=== PATIENT | male | born 1960 | race Caucasian/White ===

== ENCOUNTER 2018-11-28 20:32 | Inpatient (IN) | payer OTHER ==
[2018-11-28 21:31] LABS: HEMATOCRIT 40.1 % (37.9-51.0); HEMOGLOBIN 13.5 g/dL (13.5-17.0); MEAN CORPUSCULAR HGB CONC 33.7 g/dL (32.0-36.0); MEAN CORPUSCULAR VOLUME 89 fl (80-97); PLATELET COUNT 220 10^3/uL (150-450); RED BLOOD COUNT 4.51 10^6/uL (4.35-5.55); RED CELL DISTRIBUTION WIDTH 13.6 % (11.5-14.0)
[2018-11-28 21:40] LABS: INTERNATIONAL RATION (INR) 1.03; PROTHROMBIN TIME 14.1 SEC (11.4-15.4)
[2018-11-28] MEDS ORDERED: ONDANSETRON HCL INJ/PF 4 MG/2 ML SDV IV ONE (21:45)
[2018-11-28] MEDS ORDERED: NORMAL SALINE 1000 ML 1,000 ML IV ONE ×2 (21:45→22:51)
[2018-11-28 21:50] LABS: PLATELET COMMENT ADEQUATE
[2018-11-28 21:51] LABS: SMUDGE CELLS PRESENT
[2018-11-28 21:52] LABS: RBC MORPHOLOGY COMMENT NORMO-CYTIC/CHROMIC
[2018-11-28 22:03] LABS: ABSOLUTE LYMPHOCYTES# (MANUAL) 23.1 10^3/uL (0.5-4.7); ABSOLUTE MONOCYTES # (MANUAL) 0.3 10^3/uL (0.1-1.4); BASOPHILS % (MANUAL) 0 % (0-2); EOSINOPHILS % (MANUAL) 0 % (0-6); MONOCYTES % (MANUAL) 1 % (3-13); SEGMENTED NEUTROPHILS % (MAN) 23 % (42-78); TOTAL CELLS COUNTED 100
[2018-11-28] MEDS ORDERED: PANTOPRAZOLE SODIUM 40 MG VIAL IV ONE (22:03)
[2018-11-28] MEDS ORDERED: PANTOPRAZOLE SODIUM 40 MG VIAL IV PRN (22:03)
--- NOTE | 2018-11-28 22:05 | ER Document Report ---
ED General - General Chief Complaint: GI Bleeding Stated Complaint: VOMITING BLOOD Time Seen by Provider: 11/28/18 21:44 Notes: Patient is a 58-year old male with past medical history of hypertension and hypercholesterolemia who presents due to concerns of vomiting bright red blood and passing several bowel movements of bright red blood as well as now melanotic stools. Patient states that he had only one episode of vomiting bright red bloo d and has not had any recurrence since that time. States that he subsequently began passing bright red blood in his stool which has since become a dark, tarry substance. States that he had been working out in the heat all day when he began to feel somewhat nauseated and then had the described episode of vomiting. He denies any abdominal pain. Has not noted that anything seems to improve or worsen his symptoms. Regards symptoms as being severe. He denies a history of similar symptoms in the past but reports that he has a history of a Liz fundoplication for severe reflux. Does not take any form of H2 melva or PPI. Does intimately take meloxicam but denies other NSAID use. Does not smoke or drink alcohol. - Related Data Allergies/Adverse Reactions: No Known Allergies Allergy (Unverified 02/04/12 19:25) Past Medical History - General Information source: Patient - Social History Smoking Status: Never Smoker Frequency of alcohol use: None Drug Abuse: None Lives with: Spouse/Significant other Family History: Reviewed & Not Pertinent - Past Medical History Cardiac Medical History: Reports: Hx Hypercholesterolemia, Hx Hypertension Denies: Hx Atrial Fibrillation, Hx Congestive Heart Failure, Hx Coronary Artery Disease, Hx Heart Attack, Hx Peripheral Vascular Disease, Hx Pulmonary Embolism, Hx Heart Murmur Pulmonary Medical History: Denies: Hx Asthma, Hx Bronchitis, Hx COPD, Hx Pneumonia, Hx Respiratory Failure, Hx Sleep Apnea, Hx Tuberculosis Neurological Medical History: Denies: Hx Cerebrovascular Accident, Hx Seizures Endocrine Medical History: Denies: Hx Graves' Disease, Hx Hyperthyroidism, Hx Hypothyroidism Renal/ Medical History: Denies: Hx Benign Prostatic Hyperplasia, Hx End Stage Renal Disease, Hx Kidney Stones, Hx Peritoneal Dialysis Malignancy Medical History: Denies Hx Leukemia, Denies Hx Lung Cancer GI Medical History: Reports: Hx Hiatal Hernia. Denies: Hx Crohn's Disease, Hx Gastroesophageal Reflux Disease, Hx Irritable Bowel, Hx Liver Failure, Hx Pancreatitis, Hx Ulcer Musculoskeletal Medical History: Denies Hx Arthritis, Denies Hx Fibromyalgia, Denies Hx Multiple Sclerosis, Denies Hx Muscular Dystrophy, Denies Hx Systemic Lupus Erythematosus Psychiatric Medical History: Denies: Hx Bipolar Disorder, Hx Dementia, Hx Depression, Hx Post Traumatic Stress Disorder, Hx Schizophrenia Traumatic Medical History: Reports: Hx Fractures - Right foot- big and little toe Infectious Medical History: Denies: Hx HIV Past Surgical History: Reports: Hx Cholecystectomy, Hx Thyroid Surgery - parathyroid removal, Hx Tonsillectomy. Denies: Hx Appendectomy, Hx Bowel Surgery, Hx Colostomy, Hx Coronary Artery Bypass Graft, Hx Gastric Bypass Surgery, Hx Herniorrhaphy, Hx Pacemaker Review of Systems - Review of Systems Notes: Constitutional: Negative for fever. HENT: Negative for sore throat. Eyes: Negative for visual changes. Cardiovascular: Negative for chest pain. Respiratory: Negative for shortness of breath. Gastrointestinal: Negative for abdominal pain, positive for hematemesis and melanotic stools Genitourinary: Negative for dysuria. Musculoskeletal: Negative for back pain. Skin: Negative for rash. Neurological: Negative for headaches, weakness or numbness. 10 point ROS negative except as marked above and in HPI. Physical Exam - Vital signs Vitals: Temp Pulse Resp BP Pulse Ox 98.3 F 136 H 20 148/96 H 97 11/28/18 20:42 11/28/18 20:42 11/28/18 20:42 11/28/18 20:42 11/28/18 20:42 Interpretation: Hypertensive, Tachycardic Notes: PHYSICAL EXAMINATION: GENERAL: Well-appearing, well-nourished and in no acute distress. HEAD: Atraumatic, normocephalic. EYES: Pupils equal round and reactive to light, extraocular movements intact, sclera anicteric, conjunctiva are normal. ENT: nares patent, oropharynx clear without exudates. Moist mucous membranes. NECK: Normal range of motion, supple without lymphadenopathy LUNGS: Breath sounds clear to auscultation bilaterally and equal. No wheezes rales or rhonchi. HEART: Regular tachycardia without murmurs ABDOMEN: Soft, nontender, normoactive bowel sounds. No guarding, no rebound. No masses appreciated. EXTREMITIES: Normal range of motion, no pitting or edema. No cyanosis. NEUROLOGICAL: No focal neurological deficits. Moves all extremities spontaneously and on command. PSYCH: Normal mood, normal affect. SKIN: Warm, Dry, normal turgor, no rashes or lesions noted. Course - Re-evaluation Re-evalutation: 11/28/18 22:03 Patient presents with vomiting bright red blood on one occasion and having several initially bright red blood blood per rectum episodes now melanotic stools here in the emergency department. Guaiac positive at bedside with obvious melena. Abdominal exam with some mild epigastric abdominal tenderness o therwise no focal areas of tenderness, rebound or guarding. Patient was near syncopal at home although did not lose consciousness. Initially tachycardic here in the emergency department without hypotension. Has a history of a Liz in the past secondary to severe reflux. Does not currently take any form of H2 or PPI but does take meloxicam intermittently for rotator cuff issues but states he only takes it 1-2 times weekly. The patient will receive laboratories, has been started on a Protonix infusion after bolus, will require hospitalization. We do have Dr. Enrique available who is capable of performing endoscopies if this does become necessary. 11/28/18 23:05 Patient's labs do demonstrate prominent leukocytosis with lymphocytic predominance worrisome for CLL. This has been disclosed to the patient. Patient's labs also noted for hyperkalemia at 6.1. Patient has been treated wit h furosemide, IV fluids, as well as dextrose and insulin. I have reassessed the patient, he has not had any further episodes of vomiting or melanotic stools. Repeat abdominal exam remains benign. I have discussed this case with Dr. Lynn who is accepted patient for hospitalization. - Vital Signs Vital signs: Temp Pulse Resp BP Pulse Ox 98.6 F 105 H 20 145/120 H 98 11/29/18 01:28 11/29/18 01:28 11/29/18 01:28 11/29/18 01:28 11/29/18 01:28 - Laboratory Result Diagrams: 11/28/18 21:05 11/28/18 21:55 Laboratory results interpreted by me: 11/28/18 11/28/18 11/28/18 21:05 21:55 22:40 WBC 30.4 H* Seg Neuts % (Manual) 23 L Lymphocytes % (Manual) 76 H Monocytes % (Manual) 1 L Abs Lymphs (Manual) 23.1 H Potassium 6.1 H* BUN 37 H Glucose 117 H Urine Ketones TRACE H - EKG Interpretation by Me Additional EKG results interpreted by me: 11/28/18 23:12 Rate 96, sinus rhythm, no ST elevations or depressions. QTC is 420. Discharge - Discharge Clinical Impression: Upper GI bleed, Melanotic stools, Hyperkalemia Hematemesis Qualifiers: Nausea presence: with nausea Qualified Code(s): K92.0 - Hematemesis Leukocytosis Qualifiers: Leukocytosis type: lymphocytosis Qualified Code(s): D72.820 - Lymphocytosis (symptomatic) Condition: Fair Disposition: ADMITTED INPATIENT Admitting Provider: Shane (Hospitalist) Unit Admitted: [facility]
[2018-11-28 22:09] LABS: LYMPHOCYTES % (MANUAL) 76 % (13-45); WHITE BLOOD COUNT 30.4 10^3/uL (4.0-10.5)
[2018-11-28 22:43] LABS: ALANINE AMINOTRANSFERASE 31 U/L (21-72); ALKALINE PHOSPHATASE 47 U/L (38-126); ANION GAP 9 (5-19); ASPARTATE AMINO TRANSFERASE 30 U/L (17-59); BILIRUBIN,DIRECT 0.2 mg/dL (0.0-0.4); BILIRUBIN,TOTAL 0.8 mg/dL (0.2-1.3); BLOOD UREA NITROGEN 37 mg/dL (7-20); CALCIUM 8.6 mg/dL (8.4-10.2); CARBON DIOXIDE 25 mmol/L (22-30); CHLORIDE 106 mmol/L (98-107); GLUCOSE 117 mg/dL (75-110); SODIUM 139.6 mmol/L (137-145); TOTAL PROTEIN 6.5 g/dL (6.3-8.2)
[2018-11-28 22:46] LABS: POTASSIUM 6.1 mmol/L (3.6-5.0)
[2018-11-28] MEDS ORDERED: INSULIN REG, HUMAN 100 UNIT/ML 3 ML VIAL (PYX) IV ONE (22:51)
[2018-11-28] MEDS ORDERED: DEXTROSE 50%-WATER 25 GM/50 ML DISP.SYRIN IV ONE (22:51)
[2018-11-28] MEDS ORDERED: FUROSEMIDE INJ/PF 20 MG/2 ML SDV IV ONE (22:51)
--- NOTE | 2018-11-28 23:33 | EKG REPORT ---
SEVERITY:- ABNORMAL ECG - SINUS RHYTHM PROBABLE INFERIOR INFARCT, AGE INDETERMINATE : Confirmed by: Ashley Pompa MD 28-Nov-2018 23:32:31
[2018-11-28] MEDS ORDERED: ONDANSETRON HCL INJ/PF 4 MG/2 ML SDV IV PRN (23:48)
[2018-11-28] MEDS ORDERED: RINGERS SOLUTION,LACTATED 1,000 ML IV PRN (23:48)
[2018-11-28] MEDS ORDERED: METOPROLOL TARTRATE PF/INJ 5 MG/5 ML SDV IV PRN (23:58)
[2018-11-28] MEDS ORDERED: MORPHINE SULFATE 10 MG/ML INJ IV PRN (23:58)
[2018-11-28] MEDS ORDERED: ACETAMINOPHEN 650 MG SUPP.RECT PR PRN (23:58)
[2018-11-29] MEDS ORDERED: MORPHINE SULFATE 10 MG/ML INJ IV PRN ×3 (00:05)
[2018-11-29 00:39] LABS: APPEARANCE,URINE CLEAR; BILIRUBIN,URINE NEGATIVE (NEGATIVE); COLOR,URINE YELLOW; GLUCOSE, URINE NEGATIVE (NEGATIVE); KETONES,URINE TRACE mg/dL (NEGATIVE); LEUKOCYTE ESTERASE,URINE NEGATIVE (NEGATIVE); NITRITE,URINE NEGATIVE (NEGATIVE); PROTEIN,URINE NEGATIVE (NEGATIVE); URINE SPECIFIC GRAVITY 1.025; UROBILINOGEN,URINE NEGATIVE mg/dL (<2.0)
--- NOTE | 2018-11-29 02:01 | PDOC H&P ---
History of Present Illness Admission Date/PCP: 11/28/2018 No local PCP Patient complains of: Hematemesis History of Present Illness: FAROOQ HARDY is a 58 year old male who presented to the emergency room with an acute episode of severe hematemesis. He admits that he experienced the sudden onset of one large bright red bloody emesis at work at approximately 1300 prior to his eventual trip to home and subsequent coming to the emergency room. He acknowledges a mild headache on arising the morning of this event. He took Tylenol for the headache and subsequently noticed the gradual development of nausea and diaphoresis over the next few hours prior to his episode of hematemesis. He admits minimal intermittent localized epigastric discomfort, palpitations, severe diaphoresis, several near-syncopal/orthostatic hypotensive episodes after the event and the subsequent passage of bright red blood rectally followed by multiple melenic stools associated with his hematemesis. He denies prior similar episodes and has not identified any aggravating or ameliorating factors for his hematemesis. In the emergency room he was found to be mildly tachycardic without hypotension. He is remained hemodynamically stable after being started on IV fluids and a Protonix infusion. His initial lab work showed a hyperkalemia of 6.1 and a white blood count of 30,000 with a significant lymphocytic predominance possibly reflecting a chronic lymphocytic leukemia or other bone marrow dyscrasia. Patient will be admitted to the [facility] for further evaluation and treatment. Past Medical History Cardiac Medical History: Reports: Hyperlipidema, Hypertension Denies: Atrial Fibrillation, Congestive Heart Failure, Coronary Artery Disease, Myocardial Infarction, Peripheral Vascular Disease, Pulmonary Embolism, Heart Murmur Pulmonary Medical History: Denies: Asthma, Bronchitis, Chronic Obstructive Pulmonary Disease (COPD), Pneumonia, Respiratory Failure, Sleep Apnea, Tuberculosis EENT Medical History: Reports: Eyes - Corrective lenses, Throat - Remote history of tonsillitis Denies: Cataracts, Ears - Hearing aids Neurological Medical History: Denies: Hemorrhagic CVA, Ischemic CVA, Multiple Sclerosis, Seizures Endocrine Medical History: Reports: Other - 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 Denies: Diabetes Mellitus Type 1, Diabetes Mellitus Type 2, Hyperthyroidism, Hypothyroidism Renal/ Medical History: Denies: Chronic Kidney Disease, Nephrolithiasis Malignancy Medical History: Reports: None GI Medical History: Reports: Gastroesophageal Reflux Disease, Hiatal Hernia Denies: Cirrhosis, Crohn's Disease, Diverticulitis, Hepatitis, Peptic Ulcer Disease, Ulcerative Colitis Musculoskeltal Medical History: Reports: Other - Right rotator cuff tear with surgery planned next week Denies: Arthritis, Fibromyalgia Skin Medical History: Denies: Eczema, Psoriasis Psychiatric Medical History: Denies: Alcohol Dependency, Bipolar Disorder, Dementia, Depression, Post Traumatic Stress Disorder, Substance Abuse, Tobacco Dependency Traumatic Medical History: Reports: None Hematology: Denies: Anemia, Bleeding Tendencies Infectious Medical History: Reports: None Past Surgical History Past Surgical History: Reports: Cholecystectomy, Knee Replacement, Orthopedic Surgery - Bilateral knee replacements, Tonsillectomy, Other - Umang fundoplication, parathyroidectomy Social History Information Source: Patient Lives with: Spouse/Significant other Smoking Status: Never Smoker Frequency of Alcohol Use: Occasional Hx Recreational Drug Use: No Drugs: None Hx Prescription Drug Abuse: No - Advance Directive Resuscitation Status: Full Code Surrogate healthcare decision maker:: Dana Hardy Family History Family History: COPD, Hypertension, Malignancy. denies: CAD, DM, Hyperlipidemia Parental Family History Reviewed: Yes Children Family History Reviewed: No Sibling(s) Family History Reviewed.: Yes Medication/Allergy Home Medications: Atenolol [Tenormin 50 Mg Tablet] 50 mg PO DAILY 02/04/12 Atorvastatin Calcium [Lipitor 40 Mg Tablet] 40 mg PO QHS 02/04/12 Clindamycin HCl [Cleocin Hcl] 300 mg PO TID 02/04/12 Hydrocodone Bit/Acetaminophen [Vicodin 5-500 mg Tablet] 1 tab PO Q8 PRN 02/04/12 Allergies/Adverse Reactions: No Known Allergies Allergy (Unverified 02/04/12 19:25) Review of Systems Constitutional: PRESENT: as per HPI, other - Diaphoresis. ABSENT: chills, fever(s) Eyes: ABSENT: visual disturbances, other - Eye pain Ears: ABSENT: hearing changes, other - Ear pain Nose, Mouth, and Throat: ABSENT: mouth pain, sore throat Cardiovascular: PRESENT: as per HPI, palpitations, other - Near syncope/orthostatic events. ABSENT: chest pain, dyspnea on exertion, edema, orthropnea Respiratory: ABSENT: cough, dyspnea Gastrointestinal: PRESENT: as per HPI, abdominal pain, hematemesis - Bright red large volume hematemesis, melena, nausea, vomiting, other - Bright red rectal bleeding. ABSENT: constipation, diarrhea Genitourinary: ABSENT: dysuria, hematuria Musculoskeletal: PRESENT: other - Right rotator cuff tear with planned surgery. ABSENT: back pain, joint swelling, muscle weakness Integumentary: ABSENT: pruritus, rash Neurological: PRESENT: as per HPI, other - Near syncope/orthostatic events. ABSENT: confusion, convulsions, focal weakness, memory loss, syncope Psychiatric: ABSENT: anxiety, depression Endocrine: ABSENT: cold intolerance, heat intolerance Hematologic/Lymphatic: ABSENT: easy bleeding, easy bruising Physical Exam Vital Signs: Temp Pulse Resp BP Pulse Ox 98.3 F 136 H 20 148/96 H 97 11/28/18 20:42 11/28/18 20:42 11/28/18 20:42 11/28/18 20:42 11/28/18 20:42 Intake & Output 11/26/18 11/27/18 11/28/18 23:59 23:59 23:59 Weight 108.862 kg General appearance: PRESENT: no acute distress, cooperative, obese Head exam: PRESENT: atraumatic, normocephalic Eye exam: ABSENT: conjunctival injection, scleral icterus Ear exam: PRESENT: normal external ear exam. ABSENT: bleeding, drainage Mouth exam: PRESENT: dry mucosa, neck supple Neck exam: ABSENT: JVD, thyromegaly, tracheal deviation Respiratory exam: PRESENT: clear to auscultation mulugeta, symmetrical, unlabored Cardiovascular exam: PRESENT: RRR, tachycardia. ABSENT: clicks, gallop, rubs Pulses: PRESENT: normal radial pulses, normal dorsalis pedis pul Vascular exam: PRESENT: normal capillary refill. ABSENT: pallor GI/Abdominal exam: PRESENT: normal bowel sounds, soft, tenderness - Minimal epigastric tenderness on palpation Rectal exam: PRESENT: deferred Extremities exam: ABSENT: joint swelling, pedal edema Musculoskeletal exam: PRESENT: normal inspection. ABSENT: deformity, dislocati on Neurological exam: PRESENT: alert, oriented to person, oriented to place, oriented to time, oriented to situation, CN II-XII grossly intact. ABSENT: motor sensory deficit Psychiatric exam: PRESENT: appropriate affect, normal mood Skin exam: PRESENT: dry, intact, warm. ABSENT: jaundice, rash, urticaria Results Laboratory Results: 11/28/18 21:05 11/28/18 21:55 06/02/19 06/02/19 06/02/19 21:05 21:05 21:05 WBC 30.4 H* RBC 4.51 Hgb 13.5 Hct 40.1 MCV 89 MCH 30.0 MCHC 33.7 RDW 13.6 Plt Count 220 Seg Neutrophils % Not Reportable Lymphocytes % Not Reportable Monocytes % Not Reportable Eosinophils % Not Reportable Basophils % Not Reportable Absolute Neutrophils Not Reportable Absolute Lymphocytes Not Reportable Absolute Monocytes Not Reportable Absolute Eosinophils Not Reportable Absolute Basophils Not Reportable Sodium Cancelled Potassium Cancelled Chloride Cancelled Carbon Dioxide Cancelled Anion Gap Cancelled BUN Cancelled Creatinine Cancelled Est GFR ( Amer) Cancelled Est GFR (Non-Af Amer) Cancelled Glucose Cancelled Calcium Cancelled Total Bilirubin Cancelled AST Cancelled ALT Cancelled Alkaline Phosphatase Cancelled Total Protein Cancelled Albumin Cancelled Blood Type Cancelled Antibody Screen Cancelled 11/28/18 21:55 WBC RBC Hgb Hct MCV MCH MCHC RDW Plt Count Seg Neutrophils % Lymphocytes % Monocytes % Eosinophils % Basophils % Absolute Neutrophils Absolute Lymphocytes Absolute Monocytes Absolute Eosinophils Absolute Basophils Sodium 139.6 Potassium 6.1 H* Chloride 106 Carbon Dioxide 25 Anion Gap 9 BUN 37 H Creatinine 0.96 Est GFR ( Amer) > 60 Est GFR (Non-Af Amer) > 60 Glucose 117 H Calcium 8.6 Total Bilirubin 0.8 AST 30 ALT 31 Alkaline Phosphatase 47 Total Protein 6.5 Albumin 4.0 Blood Type Antibody Screen Assessment and Plan - Diagnosis (1) Upper GI bleed Is this a current diagnosis for this admission?: Yes Plan: Patient be treated with IV fluid volume replacement and his hemoglobin will be monitored on a every 6 hour basis to determine possible need for blood transfusion, which would be given if required. Additionally patient will be maintained on IV Protonix and will be kept n.p.o. He will receive morphine sulfate 2 to 4 mg IV every 2 hours as needed pain on a sliding scale basis. Surgical/gastroenterology consult will be obtained as appropriate. (2) Leukocytosis Qualifiers: Leukocytosis type: lymphocytosis Qualified Code(s): D72.820 - Lymphocytosis (symptomatic) Is this a current diagnosis for this admission?: Yes Plan: A hematology consultation will be obtained for further evaluation and treatment of the patient's lymphocyte predominant leukocytosis. (3) HTN (hypertension) Qualifiers: Hypertension type: essential hypertension Qualified Code(s): I10 - Essential (primary) hypertension Is this a current diagnosis for this admission?: Yes Plan: Patient will be placed back on his regular antihypertensive medications once he is able to take oral medications and his GI tract is stable. In the interim metoprolol 5 mg IV every 4 hours will be used to control his blood pressure if he develops a systolic pressure greater than 160 and/or diastolic pressure greater than 100. (4) HLD (hyperlipidemia) Qualifiers: Hyperlipidemia type: unspecified Qualified Code(s): E78.5 - Hyperlipidemia, unspecified Is this a current diagnosis for this admission?: Yes Plan: Patient will resume his prior hyperlipidemia therapy once his GI bleeding has resolved and he is again able to take oral medications. A lipid profile will be obtained to assess his current therapy. - Time Time Spent with patient: 25-34 minutes Medications reviewed and adjusted accordingly: Yes Anticipated discharge: Home - Inpatient Certification Based on my medical assessment, after consideration of the patient's comorbidit ies, presenting symptoms, or acuity I expect that the services needed warrant INPATIENT care.: Yes I certify that my determination is in accordance with my understanding of Me juli's requirements for reasonable and necessary INPATIENT services [42 CFR 412.3e].: Yes Medical Necessity: Need Close Monitoring Due to Risk of Patient Decompensation, Need For IV Fluids, Need For Continuous Telemetry Monitoring, Need for Surgery, Risk of Complication if Not Cared For in Hospital, Risk of Diagnosis Which Will Require Inpatient Eval/Care/Monitoring
[2018-11-29] MEDS: NORMAL SALINE 1000 ML 1,000 ML IV PRN ×3 (02:10→20:42)
[2018-11-29 05:27] LABS: HEMATOCRIT 33.2 % (37.9-51.0); MEAN CORPUSCULAR HEMOGLOBIN 30.4 pg (27.0-33.4); MEAN CORPUSCULAR VOLUME 89 fl (80-97); PLATELET COUNT 182 10^3/uL (150-450); RED BLOOD COUNT 3.72 10^6/uL (4.35-5.55); RED CELL DISTRIBUTION WIDTH 13.8 % (11.5-14.0); WHITE BLOOD COUNT 22.3 10^3/uL (4.0-10.5)
[2018-11-29 05:30] LABS: HEMOGLOBIN 11.3 g/dL (13.5-17.0)
[2018-11-29 05:40] LABS: ANION GAP 7 (5-19); BLOOD UREA NITROGEN 34 mg/dL (7-20); CARBON DIOXIDE 25 mmol/L (22-30); CHLORIDE 110 mmol/L (98-107); CHOLESTEROL 110.95 mg/dL (0-200); GLUCOSE 108 mg/dL (75-110); SODIUM 142.2 mmol/L (137-145); TRIGLYCERIDES 118 mg/dL (<150)
[2018-11-29 05:51] LABS: DIRECT LDL 72 mg/dL (<100)
[2018-11-29 06:06] LABS: POTASSIUM 4.4 mmol/L (3.6-5.0)
--- NOTE | 2018-11-29 08:17 | PDOC CONSULTATION ---
Consultation Consult Date: 11/29/18 Provider Consulted: KELLE ZHAO Consult reason:: Hematology consult was reuqested for patient with GI bleeding. History of Present Illness Admission Date/PCP: 11/28/18 23:23 History of Present Illness: FAROOQ LEVI is a 58 year old male who follows with Dr. Madi Toledo in [place]. He is scheduled to undergo shoulder surgery later this month, and had been on NSAIDs and muscle relaxers for his shoulder, but these were only PRN and he denies taking any within the last week. He also denies any steroid injections or oral tabs recently. He states that he suddenly had onset of nausea and fatigue. He then had 1 episode of hematemesis followed by bright red blood from rectum. Now, he has dark blood from bowels and feel as though he will pass out. He denies any pain. He has been seen by Dr. Penn and underwent colonoscopy 3-4 years ago which was reportedly normal. No recent EGDs. He denies being on any H2 blockers or PPIs recently. This morning, he states that he simply wants the bleeding to stop. Past Medical History Cardiac Medical History: Reports: Hyperlipidema, Hypertension Denies: Atrial Fibrillation, Congestive Heart Failure, Coronary Artery Disease, Myocardial Infarction, Peripheral Vascular Disease, Pulmonary Embolism, Heart Murmur Pulmonary Medical History: Denies: Asthma, Bronchitis, Chronic Obstructive Pulmonary Disease (COPD), Pneumonia, Respiratory Failure, Sleep Apnea, Tuberculosis EENT Medical History: Reports: Eyes - Corrective lenses, Throat - Remote history of tonsillitis Denies: Cataracts, Ears - Hearing aids Neurological Medical History: Denies: Hemorrhagic CVA, Ischemic CVA, Multiple Sclerosis, Seizures Endocrine Medical History: Reports: Other - 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 Denies: Diabetes Mellitus Type 1, Diabetes Mellitus Type 2, Hyperthyroidism, Hypothyroidism Renal/ Medical History: Denies: Chronic Kidney Disease, End Stage Renal Disease, Nephrolithiasis Malignancy Medical History: Reports: None Denies: Breast Cancer, Cervical Cancer, Leukemia, Lung Cancer, Ovarian Cancer GI Medical History: Reports: Hiatal Hernia Denies: Cirrhosis, Crohn's Disease, Diverticulitis, Gastroesophageal Reflux Disease, Hepatitis, Peptic Ulcer Disease, Ulcerative Colitis Musculoskeltal Medical History: Reports: Other - Right rotator cuff tear with surgery planned next week Denies: Arthritis, Fibromyalgia Skin Medical History: Denies: Eczema, Psoriasis Psychiatric Medical History: Denies: Alcohol Dependency, Bipolar Disorder, Dementia, Depression, Post Traumatic Stress Disorder, Substance Abuse, Tobacco Dependency Traumatic Medical History: Reports: None Hematology: Denies: Anemia, Hemophilia, Sickle Cell Disease, Bleeding Tendencies Infectious Medical History: Reports: None Denies: HIV Past Surgical History Past Surgical History: Reports: Cholecystectomy, Knee Replacement, Orthopedic Surgery - Bilateral knee replacements, Tonsillectomy, Other - Umang fundoplication, parathyroidectomy Denies: Appendectomy, Colostomy, Coronary Artery Bypass Graft, Gastric Bypass Surgery, Herniorrhaphy, Pacemaker Social History Information Source: Patient Lives with: Spouse/Significant other Smoking Status: Never Smoker Frequency of Alcohol Use: Occasional Hx Recreational Drug Use: No Drugs: None Hx Prescription Drug Abuse: No Past Social History Note: with 2 children and 2 step children. Works as a technologist, mainly at a desk. - Advance Directive Resuscitation Status: Full Code Family History Family History: Reviewed & Not Pertinent Parental Family History Reviewed: Yes - Mother with bladder cancer. MGM with unknown cancer. Father unknown. Children Family History Reviewed: Yes Sibling(s) Family History Reviewed.: No Medication/Allergy Allergies/Adverse Reactions: No Known Allergies Allergy (Unverified 02/04/12 19:25) Review of Systems Constitutional: ABSENT: fever(s), headache(s) Eyes: ABSENT: visual disturbances Ears: ABSENT: hearing changes Nose, Mouth, and Throat: ABSENT: sore throat Cardiovascular: ABSENT: chest pain, palpitations Respiratory: ABSENT: dyspnea Gastrointestinal: PRESENT: hematemesis, melena. ABSENT: abdominal pain Genitourinary: ABSENT: dysuria Musculoskeletal: ABSENT: back pain Integumentary: ABSENT: rash Neurological: PRESENT: dizziness, weakness Hematologic/Lymphatic: ABSENT: easy bleeding Physical Exam Vital Signs: Temp Pulse Resp BP Pulse Ox 98.6 F 105 H 20 145/120 H 98 11/29/18 01:28 11/29/18 01:28 11/29/18 01:28 11/29/18 01:28 11/29/18 01:28 Intake & Output 11/28/18 11/29/18 11/30/18 06:59 06:59 06:59 Intake Total 3000 Balance 3000 Weight 108.7 kg General appearance: PRESENT: no acute distress, well-developed, well-nourished Exam: 58 year old male. Head exam: PRESENT: normocephalic Eye exam: PRESENT: EOMI, PERRLA Mouth exam: PRESENT: tongue midline Neck exam: ABSENT: lymphadenopathy, tenderness Respiratory exam: PRESENT: clear to auscultation mulugeta, unlabored Cardiovascular exam: PRESENT: RRR GI/Abdominal exam: PRESENT: normal bowel sounds, soft. ABSENT: organolmegaly, tenderness Extremities exam: ABSENT: pedal edema Musculoskeletal exam: PRESENT: normal inspection Neurological exam: PRESENT: alert, awake Psychiatric exam: PRESENT: appropriate affect Focused psych exam: ABSENT: restlessness Skin exam: PRESENT: normal color Results Laboratory Results: 11/29/18 04:27 11/29/18 04:27 11/28/18 11/28/18 11/28/18 21:05 21:05 21:05 WBC 30.4 H* RBC 4.51 Hgb 13.5 Hct 40.1 MCV 89 MCH 30.0 MCHC 33.7 RDW 13.6 Plt Count 220 Seg Neutrophils % Not Reportable Lymphocytes % Not Reportable Monocytes % Not Reportable Eosinophils % Not Reportable Basophils % Not Reportable Absolute Neutrophils Not Reportable Absolute Lymphocytes Not Reportable Absolute Monocytes Not Reportable Absolute Eosinophils Not Reportable Absolute Basophils Not Reportable Sodium Cancelled Potassium Cancelled Chloride Cancelled Carbon Dioxide Cancelled Anion Gap Cancelled BUN Cancelled Creatinine Cancelled Est GFR ( Amer) Cancelled Est GFR (Non-Af Amer) Cancelled Glucose Cancelled Calcium Cancelled Magnesium Total Bilirubin Cancelled AST Cancelled ALT Cancelled Alkaline Phosphatase Cancelled Total Protein Cancelled Albumin Cancelled Triglycerides Cholesterol LDL Cholesterol Direct VLDL Cholesterol HDL Cholesterol Urine Color Urine Appearance Urine pH Ur Specific [place] Urine Protein Urine Glucose (UA) Urine Ketones Urine Blood Urine Nitrite Ur Leukocyte Esterase Urine WBC (Auto) Urine RBC (Auto) Blood Type Cancelled Antibody Screen Cancelled 11/28/18 11/28/18 11/28/18 21:55 21:55 22:40 WBC RBC Hgb Hct MCV MCH MCHC RDW Plt Count Seg Neutrophils % Lymphocytes % Monocytes % Eosinophils % Basophils % Absolute Neutrophils Absolute Lymphocytes Absolute Monocytes Absolute Eosinophils Absolute Basophils Sodium 139.6 Potassium 6.1 H* Chloride 106 Carbon Dioxide 25 Anion Gap 9 BUN 37 H Creatinine 0.96 Est GFR ( Amer) > 60 Est GFR (Non-Af Amer) > 60 Glucose 117 H Calcium 8.6 Magnesium Total Bilirubin 0.8 AST 30 ALT 31 Alkaline Phosphatase 47 Total Protein 6.5 Albumin 4.0 Triglycerides Cholesterol LDL Cholesterol Direct VLDL Cholesterol HDL Cholesterol Urine Color YELLOW Urine Appearance CLEAR Urine pH 6.0 Ur Specific [place] 1.025 Urine Protein NEGATIVE Urine Glucose (UA) NEGATIVE Urine Ketones TRACE H Urine Blood NEGATIVE Urine Nitrite NEGATIVE Ur Leukocyte Esterase NEGATIVE Urine WBC (Auto) 1 Urine RBC (Auto) 1 Blood Type O POSITIVE Antibody Screen NEGATIVE 11/29/18 11/29/18 04:27 04:27 WBC 22.3 H RBC 3.72 L Hgb 11.3 L D Hct 33.2 L MCV 89 MCH 30.4 MCHC 34.0 RDW 13.8 Plt Count 182 Seg Neutrophils % Lymphocytes % Monocytes % Eosinophils % Basophils % Absolute Neutrophils Absolute Lymphocytes Absolute Monocytes Absolute Eosinophils Absolute Basophils Sodium 142.2 Potassium 4.4 D Chloride 110 H Carbon Dioxide 25 Anion Gap 7 BUN 34 H Creatinine 1.00 Est GFR ( Amer) > 60 Est GFR (Non-Af Amer) > 60 Glucose 108 Calcium 8.0 L Magnesium 1.6 Total Bilirubin AST ALT Alkaline Phosphatase Total Protein Albumin Triglycerides 118 Cholesterol 110.95 LDL Cholesterol Direct 72 VLDL Cholesterol 24.0 HDL Cholesterol 27 L Urine Color Urine Appearance Urine pH Ur Specific [place] Urine Protein Urine Glucose (UA) Urine Ketones Urine Blood Urine Nitrite Ur Leukocyte Esterase Urine WBC (Auto) Urine RBC (Auto) Blood Type Antibody Screen Assessment & Plan - Diagnosis (1) Leukocytosis Qualifiers: Leukocytosis type: lymphocytosis Qualified Code(s): D72.820 - Lymphocytosis (symptomatic) Is this a current diagnosis for this admission?: Yes Plan: This may just be reactive. I will wait until bleeding stops and consider Flow Cytometry on peripheral blood to rule out CLL next week. (2) Upper GI bleed Is this a current diagnosis for this admission?: Yes Plan: He has seen Dr. Penn in the past. Agree with plans for EGD to find cause of the bleeding. Currently, HGB is decreasing, but no indication for blood transfusion. Would transfuse to keep HGB >8 or for hemodynamic compromise. - Plan Summary Plan Summary: PT/PTT/PLT are all normal. I will be happy to follow with you. Please call with any concerns.
[2018-11-29] MEDS ORDERED: PANTOPRAZOLE SODIUM 40 MG VIAL IV SCH (10:00)
[2018-11-29] MEDS ORDERED: NORMAL SALINE 250 ML IV PRN (11:16)
[2018-11-29] MEDS ORDERED: ONDANSETRON HCL INJ/PF 4 MG/2 ML SDV IV PRN (11:30)
[2018-11-29 12:02] LABS: HEMATOCRIT 26.5 % (37.9-51.0); MEAN CORPUSCULAR HGB CONC 33.4 g/dL (32.0-36.0); MEAN CORPUSCULAR VOLUME 90 fl (80-97); PLATELET COUNT 184 10^3/uL (150-450); RED BLOOD COUNT 2.95 10^6/uL (4.35-5.55); RED CELL DISTRIBUTION WIDTH 13.8 % (11.5-14.0); WHITE BLOOD COUNT 23.7 10^3/uL (4.0-10.5)
--- NOTE | 2018-11-29 12:03 | PDOC CONSULTATION ---
Consultation Consult Date: 11/29/18 Provider Consulted: JUAN LUIS VELASQUEZ Consult reason:: hematemesis and hematochetia History of Present Illness Admission Date/PCP: 11/28/18 23:23 History of Present Illness: FAROOQ LEVI is a 58 year old male with a hx of HTN, bilateral knee surgery, s/p laparoscopic Liz fundoplication (2004) for severe reflux, who reports feeling sick yesterday at about lunchtime, had one episode of hematemesis followed by hematochetia and later maroon stools (about 12). He was admitted last evening and since the admission he has had four maroon stools. This morning, he tried to stand up and became hypotensive (92/60) with near syncopal episode; now. the hypotension has resolved with a BPS of 107. He denies the use of NSAIDS, occasionally uses Zantac; has not had an EGD in sevaral years and never been diagnosed with ulcers or gastritis. Past Medical History Cardiac Medical History: Reports: Hyperlipidema, Hypertension Denies: Atrial Fibrillation, Congestive Heart Failure, Coronary Artery Disease, Myocardial Infarction, Peripheral Vascular Disease, Pulmonary Embolism, Heart Murmur Pulmonary Medical History: Denies: Asthma, Bronchitis, Chronic Obstructive Pulmonary Disease (COPD), Pneumonia, Respiratory Failure, Sleep Apnea, Tuberculosis EENT Medical History: Reports: Eyes - Corrective lenses, Throat - Remote history of tonsillitis Denies: Cataracts, Ears - Hearing aids Neurological Medical History: Denies: Hemorrhagic CVA, Ischemic CVA, Multiple Sclerosis, Seizures Endocrine Medical History: Reports: Other - 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 Denies: Diabetes Mellitus Type 1, Diabetes Mellitus Type 2, Hyperthyroidism, Hypothyroidism Renal/ Medical History: Denies: Chronic Kidney Disease, End Stage Renal Disease, Nephrolithiasis Malignancy Medical History: Reports: None Denies: Breast Cancer, Cervical Cancer, Leukemia, Lung Cancer, Ovarian Cancer GI Medical History: Reports: Hiatal Hernia Denies: Cirrhosis, Crohn's Disease, Diverticulitis, Gastroesophageal Reflux Disease, Hepatitis, Peptic Ulcer Disease, Ulcerative Colitis Musculoskeltal Medical History: Reports: Other - Right rotator cuff tear with surgery planned next week Denies: Arthritis, Fibromyalgia Skin Medical History: Denies: Eczema, Psoriasis Psychiatric Medical History: Denies: Alcohol Dependency, Bipolar Disorder, Dementia, Depression, Post Traumatic Stress Disorder, Substance Abuse, Tobacco Dependency Traumatic Medical History: Reports: None Hematology: Denies: Anemia, Hemophilia, Sickle Cell Disease, Bleeding Tendencies Infectious Medical History: Reports: None Denies: HIV Past Surgical History Past Surgical History: Reports: Cholecystectomy, Knee Replacement, Orthopedic Surgery - Bilateral knee replacements, Tonsillectomy, Other - Umang fundoplication, parathyroidectomy Denies: Appendectomy, Colostomy, Coronary Artery Bypass Graft, Gastric Bypass Surgery, Herniorrhaphy, Pacemaker Social History Lives with: Spouse/Significant other Smoking Status: Never Smoker Frequency of Alcohol Use: Occasional Hx Recreational Drug Use: No Drugs: None Hx Prescription Drug Abuse: No - Advance Directive Resuscitation Status: Full Code Family History Family History: Reviewed & Not Pertinent Parental Family History Reviewed: No Children Family History Reviewed: No Sibling(s) Family History Reviewed.: No Medication/Allergy Home Medications: Atorvastatin Calcium [Lipitor 20 mg Tablet] 20 mg PO QHS 11/29/18 Cyclobenzaprine HCl [Flexeril 10 mg Tablet] 10 mg PO TIDP PRN 11/29/18 Doxycycline Hyclate [Vibramycin] 100 mg PO DAILY 11/29/18 Hydrochlorothiazide [Hydrodiuril 25 mg Tablet] 25 mg PO DAILY 11/29/18 Meloxicam [Mobic] 15 mg PO DAILYP PRN 11/29/18 Metoprolol Succinate [Toprol Xl 50 mg Tab.sr] 50 mg PO DAILY 11/29/18 Allergies/Adverse Reactions: No Known Allergies Allergy (Unverified 02/04/12 19:25) Physical Exam Vital Signs: Temp Pulse Resp BP Pulse Ox 98.6 F 114 H 24 H 92/60 L 100 11/29/18 07:18 11/29/18 07:18 11/29/18 07:18 11/29/18 07:18 11/29/18 07:18 Intake & Output 11/28/18 11/29/18 11/30/18 06:59 06:59 06:59 Intake Total 3000 Balance 3000 Weight 108.7 kg General appearance: PRESENT: mild distress Head exam: PRESENT: atraumatic Eye exam: PRESENT: EOMI Mouth exam: PRESENT: moist, neck supple Neck exam: PRESENT: full ROM Respiratory exam: PRESENT: clear to auscultation mulugeta Cardiovascular exam: PRESENT: RRR GI/Abdominal exam: PRESENT: soft, other - no tenderness, no peritoneal signs Rectal exam: PRESENT: deferred Extremities exam: PRESENT: full ROM, tenderness Neurological exam: PRESENT: alert, awake, oriented to person Psychiatric exam: PRESENT: appropriate affect Skin exam: PRESENT: warm Results Laboratory Results: 11/29/18 04:27 11/29/18 04:27 11/28/18 11/28/18 11/28/18 21:05 21:05 21:05 WBC 30.4 H* RBC 4.51 Hgb 13.5 Hct 40.1 MCV 89 MCH 30.0 MCHC 33.7 RDW 13.6 Plt Count 220 Seg Neutrophils % Not Reportable Lymphocytes % Not Reportable Monocytes % Not Reportable Eosinophils % Not Reportable Basophils % Not Reportable Absolute Neutrophils Not Reportable Absolute Lymphocytes Not Reportable Absolute Monocytes Not Reportable Absolute Eosinophils Not Reportable Absolute Basophils Not Reportable Sodium Cancelled Potassium Cancelled Chloride Cancelled Carbon Dioxide Cancelled Anion Gap Cancelled BUN Cancelled Creatinine Cancelled Est GFR ( Amer) Cancelled Est GFR (Non-Af Amer) Cancelled Glucose Cancelled Calcium Cancelled Magnesium Total Bilirubin Cancelled AST Cancelled ALT Cancelled Alkaline Phosphatase Cancelled Total Protein Cancelled Albumin Cancelled Triglycerides Cholesterol LDL Cholesterol Direct VLDL Cholesterol HDL Cholesterol Urine Color Urine Appearance Urine pH Ur Specific [place] Urine Protein Urine Glucose (UA) Urine Ketones Urine Blood Urine Nitrite Ur Leukocyte Esterase Urine WBC (Auto) Urine RBC (Auto) Blood Type Cancelled Antibody Screen Cancelled 11/28/18 11/28/18 11/28/18 21:55 21:55 22:40 WBC RBC Hgb Hct MCV MCH MCHC RDW Plt Count Seg Neutrophils % Lymphocytes % Monocytes % Eosinophils % Basophils % Absolute Neutrophils Absolute Lymphocytes Absolute Monocytes Absolute Eosinophils Absolute Basophils Sodium 139.6 Potassium 6.1 H* Chloride 106 Carbon Dioxide 25 Anion Gap 9 BUN 37 H Creatinine 0.96 Est GFR ( Amer) > 60 Est GFR (Non-Af Amer) > 60 Glucose 117 H Calcium 8.6 Magnesium Total Bilirubin 0.8 AST 30 ALT 31 Alkaline Phosphatase 47 Total Protein 6.5 Albumin 4.0 Triglycerides Cholesterol LDL Cholesterol Direct VLDL Cholesterol HDL Cholesterol Urine Color YELLOW Urine Appearance CLEAR Urine pH 6.0 Ur Specific [place] 1.025 Urine Protein NEGATIVE Urine Glucose (UA) NEGATIVE Urine Ketones TRACE H Urine Blood NEGATIVE Urine Nitrite NEGATIVE Ur Leukocyte Esterase NEGATIVE Urine WBC (Auto) 1 Urine RBC (Auto) 1 Blood Type O POSITIVE Antibody Screen NEGATIVE 11/29/18 11/29/18 04:27 04:27 WBC 22.3 H RBC 3.72 L Hgb 11.3 L D Hct 33.2 L MCV 89 MCH 30.4 MCHC 34.0 RDW 13.8 Plt Count 182 Seg Neutrophils % Lymphocytes % Monocytes % Eosinophils % Basophils % Absolute Neutrophils Absolute Lymphocytes Absolute Monocytes Absolute Eosinophils Absolute Basophils Sodium 142.2 Potassium 4.4 D Chloride 110 H Carbon Dioxide 25 Anion Gap 7 BUN 34 H Creatinine 1.00 Est GFR ( Amer) > 60 Est GFR (Non-Af Amer) > 60 Glucose 108 Calcium 8.0 L Magnesium 1.6 Total Bilirubin AST ALT Alkaline Phosphatase Total Protein Albumin Triglycerides 118 Cholesterol 110.95 LDL Cholesterol Direct 72 VLDL Cholesterol 24.0 HDL Cholesterol 27 L Urine Color Urine Appearance Urine pH Ur Specific [place] Urine Protein Urine Glucose (UA) Urine Ketones Urine Blood Urine Nitrite Ur Leukocyte Esterase Urine WBC (Auto) Urine RBC (Auto) Blood Type Antibody Screen Assessment & Plan - Diagnosis (1) Gastrointestinal bleeding, lower Is this a current diagnosis for this admission?: Yes (2) Gastrointestinal bleeding, upper Is this a current diagnosis for this admission?: Yes (3) Melanotic stools Is this a current diagnosis for this admission?: Yes - Plan Summary Plan Summary: A/ Hematemesis with secondary hematochetia and maroon stools Hx of Liz Fundoplicaiton (2004) for GERD patient denies abuse of NSAIDS H/H dropped since admission (from on admission to 11.3/33.2 this morming @4 AM) Postural hypotension, now resolved P/ Continue NPO Decrease IVF rate to 125/hr Stat CBC Type and cross x 2 units PRBC available for transfusion if needed Insert Theodore catheter to monitor fluid status Obtain CT scan A/P stat to r/o gastrointestinal process Possible transfer to the ICU if the patient CBC continues to drop or if he becomes hemodynamically unstable Plan EGD with biopsy this afternoon under conscious sedation. Procedure, risks, benefits, complications, alternatives have been discussed with the patient, he understnds all the above and decides to proceed.
[2018-11-29 12:12] LABS: HEMOGLOBIN 8.9 g/dL (13.5-17.0)
[2018-11-29 13:08] LABS: ABSOLUTE LYMPHOCYTES# (MANUAL) 13.7 10^3/uL (0.5-4.7); ABSOLUTE MONOCYTES # (MANUAL) 1.7 10^3/uL (0.1-1.4); ABSOLUTE NEUTROPHILS# (MANUAL) 8.3 10^3/uL (1.7-8.2); BASOPHILS % (MANUAL) 0 % (0-2); EOSINOPHILS % (MANUAL) 0 % (0-6); LYMPHOCYTES % (MANUAL) 58 % (13-45); MONOCYTES % (MANUAL) 7 % (3-13); OVALOCYTES 1+; POIKILOCYTOSIS 1+; SEGMENTED NEUTROPHILS % (MAN) 35 % (42-78); SMUDGE CELLS PRESENT; TOTAL CELLS COUNTED 100
[2018-11-29 13:09] LABS: PLATELET COMMENT ADEQUATE; ROULEAUX SLIGHT
[2018-11-29] MEDS ORDERED: DIPHENHYDRAMINE HCL 50 MG/ML VIAL ONE (13:25)
[2018-11-29] MEDS ORDERED: ONDANSETRON HCL INJ/PF 4 MG/2 ML SDV ONE (13:25)
[2018-11-29] MEDS ORDERED: FLUMAZENIL INJ 0.5 MG/5 ML VIAL ONE (13:26)
[2018-11-29] MEDS ORDERED: NALOXONE HCL INJ/PF 0.4 MG/1 ML SDV ONE (13:26)
[2018-11-29] MEDS ORDERED: EPINEPHRINE INJ 1 MG/10 ML DISP.SYRIN ONE (13:27)
[2018-11-29] MEDS ORDERED: GLUCAGON,HUMAN RECOMB 1 MG INJ ONE (13:27)
[2018-11-29] MEDS: MIDAZOLAM 2 MG/2 ML INJ ONE ×2 (13:52→14:12)
[2018-11-29] MEDS: FENTANYL CITRATE INJ/PF 100 MCG/2 ML AMPUL ONE ×2 (13:55→14:18)
--- NOTE | 2018-11-29 14:49 | Operative Report ---
Nonrecallable Operative Report DATE OF SURGERY: 11/29/18 PREOPERATIVE DIAGNOSIS: Upper gastrointestinal bleeding, hematemesis POSTOPERATIVE DIAGNOSIS: same, hemorrhagic gastritis with possible ulceration of the Liz gastric wrap OPERATION: EGD with biopsy; IV conscious sedation provided by Dr. Velasquez SURGEON: JUAN LUIS VELASQUEZ ANESTHESIA: Moderate Sedation - 4 mg IVP Versed, 75 mcg IVP Fentanyl provided by Dr. Velasquez TISSUE REMOVED OR ALTERED: multiple biopsies COMPLICATIONS: none ESTIMATED BLOOD LOSS: 10 mL INTRAOPERATIVE FINDINGS: actively bleeding gastritis of the Liz gatric wrap versus gastric ulcer of the wrap PROCEDURE: see dictation
--- NOTE | 2018-11-29 15:24 | OPERATIVE REPORT E ---
Operative Report NAME: FAROOQ LEVI : 1960 AGE: 58Y DATE OF SURGERY: 11/29/2018 ROOM: 313 PREOPERATIVE DIAGNOSIS: 1. HEMATEMESIS. 2. HEMATOCHEZIA. 3. MAROON STOOLS. 4. HISTORY OF GASTROESOPHAGEAL REFLUX DISEASE WITH LAPAROSCOPIC LIZ FUNDOPLICATION. POSTOPERATIVE DIAGNOSIS: 1. HEMATEMESIS. 2. HEMATOCHEZIA. 3. MAROON STOOLS. 4. HISTORY OF GASTROESOPHAGEAL REFLUX DISEASE WITH LAPAROSCOPIC LIZ FUNDOPLICATION. 5. HEMORRHAGE GASTRITIS VERSUS ULCER OF THE LIZ GASTRIC WRAP. OPERATION: EGD with biopsy. SURGEON: JUAN LUIS VELASQUEZ M.D. ANESTHESIA: IV conscious sedation provided by Dr. Velasquez with 4 mg IV push of Versed and 75 mcg of IV push of Fentanyl. COMPLICATIONS: None. BLOOD LOSS: Minimal, less than 10 mL. INDICATION/FINDINGS: This is a 58-year-old male with a history of hypertension status post Liz fundoplication laparoscopic in 2004 for GERD, who was admitted yesterday evening with a history of hematemesis, followed by large amount of maroon stools. The patient presented with a drop of hemoglobin this morning since admission. The initial hemoglobin and hematocrit was 15.5 and 40.0. Today, November 29, about 12:00 his H and H was 8.9 and 26.5. A decision was made to take the patient to the endoscopy suite to undergo upper endoscopy. Procedure, risks, benefits, and complications explained to the patient. He understands and desires to proceed. PROCEDURE: The procedure was done in the procedure room. The patient was placed in lateral decubitus and a mouthpiece was placed between his teeth, and the IV sedation was provided as above by Dr. Velasquez. The gastroscope was inserted and advanced through the mouth and esophagus and the eventually dropped into the stomach as well as the duodenum. The duodenum was free from disease and the biopsy obtained from the duodenum mucosa as well from the antrum and gastric mucosa. Moderate amount of blood was noted in the edge of the fundus of the stomach, however, because of the gastric wrap, the anatomy was changed. Further examination of the area revealed a normal gastroesophageal junction; however, biopsies were still obtained. Insertion of the scope through the gastroesophageal junction and the wrap revealed the presence of an area of possible active bleeding which was hidden within the gastric wrap. Despite irrigation, no good visualization could be obtained but this appeared to be at an area either of hemorrhagic gastritis or a bleeding ulcer. No active bleeding vessel was identified. The area was irrigated multiple times. Irrigation fluid was aspirated but again no good visualization was obtained confoirm the presence of an ulcer. However, biopsies of the area were obtained. Following this, a nasogastric tube was inserted and placed inside of the stomach under direct visualization. The gastroscope was then removed. The nasogastric tube was then secured to the nostril with tape. The patient tolerated the procedure well and was transferred to the ICU in satisfactory condition. DICTATING PHYSICIAN: JUAN LUIS VELASQUEZ M.D. [id number] PHY#: [id number] ID: [id number] JOB#: [id number] ACCT: [id number] cc:JUAN LUIS VELASQUEZ M.D. > MTDD
[2018-11-29] MEDS ORDERED: NORMAL SALINE 500 ML with OCTREOTIDE ACETATE 500 MCG IV PRN ×2 (15:59)
--- NOTE | 2018-11-29 16:07 | PDOC PROGRESS REPORT ---
Subjective Progress Note for:: 11/29/18 Subjective:: No adverse events overnight. No new complaints. He still having intermittent bloody stools. No abdominal pain. No hematemesis. He had his EGD and a definite source of bleeding cannot be identified, but because of his history of a Liz fundoplication not all of the stomach could be seen. Reason For Visit: ACUTE UPPER GI HEMORRHAGE Physical Exam Vital Signs: Temp Pulse Resp BP Pulse Ox 98.6 F 135 H 24 H 116/76 98 11/29/18 13:25 11/29/18 15:10 11/29/18 15:10 11/29/18 15:10 11/29/18 15:11 Intake & Output 11/28/18 11/29/18 11/30/18 06:59 06:59 06:59 Intake Total 3000 400 Balance 3000 400 Weight 108.7 kg General appearance: PRESENT: no acute distress, cooperative, disheveled, obese Respiratory exam: PRESENT: clear to auscultation mulugeta, symmetrical, unlabored. ABSENT: accessory muscle use, chest wall tenderness, crackles, prolonged expiratory phas, rhonchi, tachypnea, wheezes Cardiovascular exam: PRESENT: RRR, +S1, +S2 Pulses: PRESENT: normal carotid pulses Vascular exam: PRESENT: normal capillary refill GI/Abdominal exam: PRESENT: normal bowel sounds, soft. ABSENT: distended, guarding, rebound, tenderness Rectal exam: PRESENT: heme (+) stool Extremities exam: ABSENT: clubbing, pedal edema Musculoskeletal exam: PRESENT: normal inspection. ABSENT: deformity Neurological exam: PRESENT: alert, awake, oriented to person, oriented to place, oriented to situation Psychiatric exam: PRESENT: appropriate affect, normal mood Skin exam: PRESENT: dry, warm Results Laboratory Results: 11/29/18 11:51 11/29/18 04:27 11/28/18 11/28/18 11/28/18 21:05 21:05 21:05 WBC 30.4 H* RBC 4.51 Hgb 13.5 Hct 40.1 MCV 89 MCH 30.0 MCHC 33.7 RDW 13.6 Plt Count 220 Seg Neutrophils % Not Reportable Lymphocytes % Not Reportable Monocytes % Not Reportable Eosinophils % Not Reportable Basophils % Not Reportable Absolute Neutrophils Not Reportable Absolute Lymphocytes Not Reportable Absolute Monocytes Not Reportable Absolute Eosinophils Not Reportable Absolute Basophils Not Reportable Sodium Cancelled Potassium Cancelled Chloride Cancelled Carbon Dioxide Cancelled Anion Gap Cancelled BUN Cancelled Creatinine Cancelled Est GFR ( Amer) Cancelled Est GFR (Non-Af Amer) Cancelled Glucose Cancelled Calcium Cancelled Magnesium Total Bilirubin Cancelled AST Cancelled ALT Cancelled Alkaline Phosphatase Cancelled Total Protein Cancelled Albumin Cancelled Triglycerides Cholesterol LDL Cholesterol Direct VLDL Cholesterol HDL Cholesterol Urine Color Urine Appearance Urine pH Ur Specific [place] Urine Protein Urine Glucose (UA) Urine Ketones Urine Blood Urine Nitrite Ur Leukocyte Esterase Urine WBC (Auto) Urine RBC (Auto) Blood Type Cancelled Antibody Screen Cancelled 11/28/18 11/28/18 11/28/18 21:55 21:55 22:40 WBC RBC Hgb Hct MCV MCH MCHC RDW Plt Count Seg Neutrophils % Lymphocytes % Monocytes % Eosinophils % Basophils % Absolute Neutrophils Absolute Lymphocytes Absolute Monocytes Absolute Eosinophils Absolute Basophils Sodium 139.6 Potassium 6.1 H* Chloride 106 Carbon Dioxide 25 Anion Gap 9 BUN 37 H Creatinine 0.96 Est GFR ( Amer) > 60 Est GFR (Non-Af Amer) > 60 Glucose 117 H Calcium 8.6 Magnesium Total Bilirubin 0.8 AST 30 ALT 31 Alkaline Phosphatase 47 Total Protein 6.5 Albumin 4.0 Triglycerides Cholesterol LDL Cholesterol Direct VLDL Cholesterol HDL Cholesterol Urine Color YELLOW Urine Appearance CLEAR Urine pH 6.0 Ur Specific [place] 1.025 Urine Protein NEGATIVE Urine Glucose (UA) NEGATIVE Urine Ketones TRACE H Urine Blood NEGATIVE Urine Nitrite NEGATIVE Ur Leukocyte Esterase NEGATIVE Urine WBC (Auto) 1 Urine RBC (Auto) 1 Blood Type O POSITIVE Antibody Screen NEGATIVE 11/29/18 11/29/18 11/29/18 04:27 04:27 11:51 WBC 22.3 H 23.7 H RBC 3.72 L 2.95 L Hgb 11.3 L D 8.9 L D Hct 33.2 L 26.5 L MCV 89 90 MCH 30.4 30.0 MCHC 34.0 33.4 RDW 13.8 13.8 Plt Count 182 184 Seg Neutrophils % Not Reportable Lymphocytes % Not Reportable Monocytes % Not Reportable Eosinophils % Not Reportable Basophils % Not Reportable Absolute Neutrophils Not Reportable Absolute Lymphocytes Not Reportable Absolute Monocytes Not Reportable Absolute Eosinophils Not Reportable Absolute Basophils Not Reportable Sodium 142.2 Potassium 4.4 D Chloride 110 H Carbon Dioxide 25 Anion Gap 7 BUN 34 H Creatinine 1.00 Est GFR ( Amer) > 60 Est GFR (Non-Af Amer) > 60 Glucose 108 Calcium 8.0 L Magnesium 1.6 Total Bilirubin AST ALT Alkaline Phosphatase Total Protein Albumin Triglycerides 118 Cholesterol 110.95 LDL Cholesterol Direct 72 VLDL Cholesterol 24.0 HDL Cholesterol 27 L Urine Color Urine Appearance Urine pH Ur Specific [place] Urine Protein Urine Glucose (UA) Urine Ketones Urine Blood Urine Nitrite Ur Leukocyte Esterase Urine WBC (Auto) Urine RBC (Auto) Blood Type Antibody Screen Assessment and Plan - Diagnosis (1) Gastrointestinal bleeding, upper Is this a current diagnosis for this admission?: Yes Plan: Source cannot be identified on EGD, but because of the Liz fundoplication that he had in 2004 for its possible he has the source of bleeding up in that area and it just cannot be visualized. Dr. Enrique has ordered a CT scan the abdomen and pelvis. He recommended moving him to the intensive care unit for monitoring. putting him on a Protonix drip and I am starting an adjunctive octreotide drip. Also added oral Carafate. H&H every 6 hours. (2) HTN (hypertension) Qualifiers: Hypertension type: essential hypertension Qualified Code(s): I10 - Essential (primary) hypertension Is this a current diagnosis for this admission?: Yes Plan: He has PRN medication available for now, will start his oral medications once his bleeding seems to have stopped. (3) Hyperkalemia Is this a current diagnosis for this admission?: Yes Plan: Resolved (4) Leukocytosis Qualifiers: Leukocytosis type: lymphocytosis Qualified Code(s): D72.820 - Lymphocytosis (symptomatic) Is this a current diagnosis for this admission?: Yes Plan: His says that she called his primary care provider's office and they looked at some of his old blood work was done on a routine basis and it seems that his white blood cell count tends to run high. He had one not long ago that was 14 and 1 even more recently that was 16, both being done under baseline conditions without any acute process. His said she would like to follow-up with Dr. Kruse in the office - Time Time Spent with patient: 25-34 minutes
[2018-11-29] MEDS ORDERED: OCTREOTIDE ACETATE INJ/PF 100 MCG/1 ML SDV IV ONE (17:00)
[2018-11-29] MEDS: NORMAL SALINE 100 ML with PANTOPRAZOLE SODIUM 80 MG IV PRN ×2 (17:58)
[2018-11-29] MEDS: SUCRALFATE 1 GM TABLET PO SCH ×2 (17:59→23:48)
[2018-11-29 18:27] LABS: HEMOGLOBIN 8.6 g/dL (13.5-17.0); MEAN CORPUSCULAR HEMOGLOBIN 29.8 pg (27.0-33.4); MEAN CORPUSCULAR HGB CONC 32.9 g/dL (32.0-36.0); MEAN CORPUSCULAR VOLUME 91 fl (80-97); PLATELET COUNT 190 10^3/uL (150-450); RED BLOOD COUNT 2.87 10^6/uL (4.35-5.55)
[2018-11-29 19:19] LABS: WHITE BLOOD COUNT 34.3 10^3/uL (4.0-10.5)
--- NOTE | 2018-11-29 20:17 | RADIOLOGY REPORT (SQ) ---
EXAM DESCRIPTION: CT ABD/PELVIS WITH IV ORAL COMPLETED DATE/TIME: 11/29/2018 7:45 pm REASON FOR STUDY: hematemesis with hematochezia; r/o GI tumor COMPARISON: None. TECHNIQUE: CT scan of the abdomen and pelvis performed using helical scanning technique with dynamic intravenous contrast injection. Oral contrast. Images reviewed with lung, soft tissue, and bone win dows. Reconstructed coronal and sagittal MPR images reviewed. Delayed images for evaluation of the ur inary system also acquired. All images stored on PACS. All CT scanners at this facility use dose modulation, iterative reconstruction, and/or weight based d osing when appropriate to reduce radiation dose to as low as reasonably achievable (ALARA). [facility]: Dose Right [facility]: CareDose [facility]: Dose Right [facility]: Teradose 4D [facility]: [place] CONTRAST TYPE AND DOSE: contrast/concentration: Isovue 350.00 mg/ml; Total Contrast Delivered: 99.0 ml; Total Saline Delivered: 71.0 ml RENAL FUNCTION: Not recorded here. Refer to cytotechnologist supervisor's notes. RADIATION DOSE: CT Rad equipment meets quality standard of care and radiation dose reduction techniq ues were employed. CTDIvol: 18.0 - 20.2 mGy. DLP: 2592 mGy-cm.. LIMITATIONS: None. FINDINGS: LOWER CHEST: No significant findings. No nodules or infiltrates. LIVER: Normal size. No masses. No dilated ducts. SPLEEN: Normal size. No focal lesions. PANCREAS: No masses. No significant calcifications. No adjacent inflammation or peripancreatic fluid collections. Pancreatic duct not dilated. GALLBLADDER: Surgically absent. ADRENAL GLANDS: No significant masses or asymmetry. RIGHT KIDNEY AND URETER: No solid masses. No significant calcifications. No hydronephrosis or hyd roureter. LEFT KIDNEY AND URETER: No solid masses. No significant calcifications. No hydronephrosis or hydr oureter. AORTA AND VESSELS: No aneurysm. No dissection. Renal arteries, SMA, celiac without stenosis. RETROPERITONEUM: No retroperitoneal adenopathy, hemorrhage or masses. BOWEL AND PERITONEAL CAVITY: No masses or inflammatory changes. No free fluid or peritoneal masses. APPENDIX: Normal. PELVIS: No mass. No free fluid. Normal bladder. ABDOMINAL WALL: No masses. No hernias. BONES: No significant or acute findings. OTHER: No other significant finding. IMPRESSION: NO SIGNIFICANT OR ACUTE FINDING IN THE ABDOMEN OR PELVIS ON CT SCAN WITH IV CONTRAST. TECHNICAL DOCUMENTATION: JOB ID: [id number] Quality ID # [id number]: Final reports with documentation of one or more dose reduction techniques (e.g., Au tomated exposure control, adjustment of the mA and/or kV according to patient size, use of iterative reconstruction technique) 2010 [employer]- All Rights Reserved Reading location - IP/workstation name: [email or web address]
[2018-11-29] MEDS: MAG HYDROX/AL HYDROX/SIMETH SUSP 30 ML UDCUP NG SCH (21:04)
[2018-11-30 01:14] LABS: MEAN CORPUSCULAR HEMOGLOBIN 30.3 pg (27.0-33.4); MEAN CORPUSCULAR HGB CONC 33.6 g/dL (32.0-36.0); MEAN CORPUSCULAR VOLUME 90 fl (80-97); PLATELET COUNT 164 10^3/uL (150-450); RED BLOOD COUNT 2.55 10^6/uL (4.35-5.55); RED CELL DISTRIBUTION WIDTH 13.8 % (11.5-14.0); WHITE BLOOD COUNT 26.6 10^3/uL (4.0-10.5)
[2018-11-30 01:19] LABS: HEMOGLOBIN 7.7 g/dL (13.5-17.0)
[2018-11-30 01:55] LABS: ABSOLUTE LYMPHOCYTES# (MANUAL) 7.4 10^3/uL (0.5-4.7); ABSOLUTE MONOCYTES # (MANUAL) 0.3 10^3/uL (0.1-1.4); ABSOLUTE NEUTROPHILS# (MANUAL) 18.9 10^3/uL (1.7-8.2); BASOPHILS % (MANUAL) 0 % (0-2); EOSINOPHILS % (MANUAL) 0 % (0-6); LYMPHOCYTES % (MANUAL) 27 % (13-45); MONOCYTES % (MANUAL) 1 % (3-13); SEGMENTED NEUTROPHILS % (MAN) 71 % (42-78); SMUDGE CELLS PRESENT; TOTAL CELLS COUNTED 100
[2018-11-30 01:56] LABS: PLATELET COMMENT ADEQUATE
[2018-11-30 01:57] LABS: ANISOCYTOSIS 1+
[2018-11-30] MEDS: MAG HYDROX/AL HYDROX/SIMETH SUSP 30 ML UDCUP NG SCH ×4 (02:03→21:05)
[2018-11-30] MEDS: NORMAL SALINE 100 ML with PANTOPRAZOLE SODIUM 80 MG IV PRN ×4 (03:09→14:56)
[2018-11-30] MEDS: NORMAL SALINE 1000 ML 1,000 ML IV PRN ×2 (04:14→19:35)
[2018-11-30] MEDS: SUCRALFATE 1 GM TABLET PO SCH ×4 (05:01→23:01)
[2018-11-30 07:46] LABS: MEAN CORPUSCULAR HEMOGLOBIN 29.8 pg (27.0-33.4); MEAN CORPUSCULAR HGB CONC 33.3 g/dL (32.0-36.0); MEAN CORPUSCULAR VOLUME 90 fl (80-97); PLATELET COUNT 147 10^3/uL (150-450); RED BLOOD COUNT 2.23 10^6/uL (4.35-5.55); RED CELL DISTRIBUTION WIDTH 14.3 % (11.5-14.0); WHITE BLOOD COUNT 24.7 10^3/uL (4.0-10.5)
[2018-11-30 07:50] LABS: HEMOGLOBIN 6.7 g/dL (13.5-17.0)
[2018-11-30 07:51] LABS: BLOOD UREA NITROGEN 25 mg/dL (7-20); CALCIUM 7.6 mg/dL (8.4-10.2); GLUCOSE 132 mg/dL (75-110); POTASSIUM 4.2 mmol/L (3.6-5.0)
[2018-11-30 07:56] LABS: CARBON DIOXIDE 25 mmol/L (22-30); CHLORIDE 113 mmol/L (98-107); SODIUM 141.7 mmol/L (137-145)
[2018-11-30 08:06] LABS: ABSOLUTE LYMPHOCYTES# (MANUAL) 15.8 10^3/uL (0.5-4.7); ABSOLUTE MONOCYTES # (MANUAL) 0.2 10^3/uL (0.1-1.4); ABSOLUTE NEUTROPHILS# (MANUAL) 8.6 10^3/uL (1.7-8.2); BASOPHILS % (MANUAL) 0 % (0-2); EOSINOPHILS % (MANUAL) 0 % (0-6); LYMPHOCYTES % (MANUAL) 64 % (13-45); MONOCYTES % (MANUAL) 1 % (3-13); PROMYELOCYTES % (MANUAL) 1 % (0); SEGMENTED NEUTROPHILS % (MAN) 34 % (42-78); TOTAL CELLS COUNTED 100
[2018-11-30 08:08] LABS: ANISOCYTOSIS SLIGHT
[2018-11-30 08:09] LABS: PLATELET COMMENT DECREASED
[2018-11-30] MEDS ORDERED: NORMAL SALINE 250 ML IV PRN (08:16)
--- NOTE | 2018-11-30 08:21 | PDOC PROGRESS REPORT ---
Subjective Progress Note for:: 11/30/18 Subjective:: Patient uncomfortable. Would like to have NG tube removed. Hoping this will happen today. Does not remember results of EGD, but believes everything looked OK. No new complaints. Reason For Visit: ACUTE UPPER GI HEMORRHAGE Physical Exam Vital Signs: Temp Pulse Resp BP Pulse Ox 98.3 F 90 16 125/65 98 11/30/18 03:37 11/30/18 07:00 11/30/18 03:37 11/30/18 03:37 11/30/18 03:37 Intake & Output 11/29/18 11/30/18 12/01/18 06:59 06:59 06:59 Intake Total 3000 1340 Output Total 1825 Balance 3000 -485 Weight 108.7 kg 110.7 kg General appearance: PRESENT: no acute distress, well-developed, well-nourished Head exam: PRESENT: other - NG tube in place without evidence of blood. Respiratory exam: PRESENT: clear to auscultation mulugeta, unlabored Cardiovascular exam: PRESENT: RRR Extremities exam: ABSENT: pedal edema Neurological exam: PRESENT: alert, awake Psychiatric exam: PRESENT: appropriate affect Skin exam: PRESENT: normal color Results Laboratory Results: 11/30/18 07:20 11/28/18 11/29/18 11/29/18 21:55 11:51 17:58 WBC 23.7 H 34.3 H* RBC 2.95 L 2.87 L Hgb 8.9 L D 8.6 L Hct 26.5 L 26.0 L MCV 90 91 MCH 30.0 29.8 MCHC 33.4 32.9 RDW 13.8 14.0 Plt Count 184 190 Seg Neutrophils % Not Reportable Lymphocytes % Not Reportable Monocytes % Not Reportable Eosinophils % Not Reportable Basophils % Not Reportable Absolute Neutrophils Not Reportable Absolute Lymphocytes Not Reportable Absolute Monocytes Not Reportable Absolute Eosinophils Not Reportable Absolute Basophils Not Reportable Blood Type O POSITIVE Antibody Screen NEGATIVE 11/30/18 11/30/18 00:47 07:20 WBC 26.6 H 24.7 H RBC 2.55 L 2.23 L Hgb 7.7 L 6.7 L Hct 23.0 L 20.0 L MCV 90 90 MCH 30.3 29.8 MCHC 33.6 33.3 RDW 13.8 14.3 H Plt Count 164 147 L Seg Neutrophils % Not Reportable Not Reportable Lymphocytes % Not Reportable Not Reportable Monocytes % Not Reportable Not Reportable Eosinophils % Not Reportable Not Reportable Basophils % Not Reportable Not Reportable Absolute Neutrophils Not Reportable Not Reportable Absolute Lymphocytes Not Reportable Not Reportable Absolute Monocytes Not Reportable Not Reportable Absolute Eosinophils Not Reportable Not Reportable Absolute Basophils Not Reportable Not Reportable Blood Type Antibody Screen Impressions: Abdomen/Pelvis CT 11/29/18 00:00 IMPRESSION: NO SIGNIFICANT OR ACUTE FINDING IN THE ABDOMEN OR PELVIS ON CT SCAN WITH IV CONTRAST. Assessment & Plan - Diagnosis (1) Leukocytosis Qualifiers: Leukocytosis type: lymphocytosis Qualified Code(s): D72.820 - Lymphocytosis (symptomatic) Is this a current diagnosis for this admission?: Yes Plan: Chronic and stable. Will consider further work-up as outpatient. (2) Upper GI bleed Is this a current diagnosis for this admission?: Yes Plan: Will transfuse 2 units today. He has had an acute drop which has been substantial. I will check retic count today to verify that it is elevated. I will continue to follow. No evidence of other cause of anemia except acute bleeding.
[2018-11-30 08:46] LABS: ANION GAP 4 (5-19)
--- NOTE | 2018-11-30 10:46 | PDOC PROGRESS REPORT ---
Subjective Progress Note for:: 11/30/18 Subjective:: No c/o; patent denies abdominal pin, N/V Reason For Visit: ACUTE UPPER GI HEMORRHAGE Physical Exam Vital Signs: Temp Pulse Resp BP Pulse Ox 98.8 F 92 18 128/73 H 96 11/30/18 09:45 11/30/18 09:45 11/30/18 09:45 11/30/18 09:45 11/30/18 09:40 Intake & Output 11/29/18 11/30/18 12/01/18 06:59 06:59 06:59 Intake Total 3000 1340 0 Output Total 1825 Balance 3000 -485 0 Weight 108.7 kg 110.7 kg General appearance: PRESENT: no acute distress, other - pale Respiratory exam: PRESENT: clear to auscultation mulugeta Cardiovascular exam: PRESENT: RRR GI/Abdominal exam: PRESENT: soft Results Laboratory Results: 11/30/18 07:20 11/30/18 07:20 11/28/18 11/29/18 11/29/18 21:55 11:51 17:58 WBC 23.7 H 34.3 H* RBC 2.95 L 2.87 L Hgb 8.9 L D 8.6 L Hct 26.5 L 26.0 L MCV 90 91 MCH 30.0 29.8 MCHC 33.4 32.9 RDW 13.8 14.0 Plt Count 184 190 Seg Neutrophils % Not Reportable Lymphocytes % Not Reportable Monocytes % Not Reportable Eosinophils % Not Reportable Basophils % Not Reportable Absolute Neutrophils Not Reportable Absolute Lymphocytes Not Reportable Absolute Monocytes Not Reportable Absolute Eosinophils Not Reportable Absolute Basophils Not Reportable Retic Count (auto) Absolute Retic Sodium Potassium Chloride Carbon Dioxide Anion Gap BUN Creatinine Est GFR ( Amer) Est GFR (Non-Af Amer) Glucose Calcium Magnesium Blood Type O POSITIVE Antibody Screen NEGATIVE 11/30/18 11/30/18 11/30/18 00:47 07:20 07:20 WBC 26.6 H 24.7 H RBC 2.55 L 2.23 L Hgb 7.7 L 6.7 L Hct 23.0 L 20.0 L MCV 90 90 MCH 30.3 29.8 MCHC 33.6 33.3 RDW 13.8 14.3 H Plt Count 164 147 L Seg Neutrophils % Not Reportable Not Reportable Lymphocytes % Not Reportable Not Reportable Monocytes % Not Reportable Not Reportable Eosinophils % Not Reportable Not Reportable Basophils % Not Reportable Not Reportable Absolute Neutrophils Not Reportable Not Reportable Absolute Lymphocytes Not Reportable Not Reportable Absolute Monocytes Not Reportable Not Reportable Absolute Eosinophils Not Reportable Not Reportable Absolute Basophils Not Reportable Not Reportable Retic Count (auto) Absolute Retic Sodium 141.7 Potassium 4.2 Chloride 113 H Carbon Dioxide 25 Anion Gap 4 L BUN 25 H Creatinine 0.92 Est GFR ( Amer) > 60 Est GFR (Non-Af Amer) > 60 Glucose 132 H Calcium 7.6 L Magnesium 1.7 Blood Type Antibody Screen 11/30/18 07:20 WBC RBC Hgb Hct MCV MCH MCHC RDW Plt Count Seg Neutrophils % Lymphocytes % Monocytes % Eosinophils % Basophils % Absolute Neutrophils Absolute Lymphocytes Absolute Monocytes Absolute Eosinophils Absolute Basophils Retic Count (auto) Cancelled Absolute Retic Cancelled Sodium Potassium Chloride Carbon Dioxide Anion Gap BUN Creatinine Est GFR ( Amer) Est GFR (Non-Af Amer) Glucose Calcium Magnesium Blood Type Antibody Screen Impressions: Abdomen/Pelvis CT 11/29/18 00:00 IMPRESSION: NO SIGNIFICANT OR ACUTE FINDING IN THE ABDOMEN OR PELVIS ON CT SCAN WITH IV CONTRAST. Assessment & Plan - Diagnosis (1) Gastrointestinal bleeding, upper Is this a current diagnosis for this admission?: Yes (2) Melanotic stools Is this a current diagnosis for this admission?: Yes (3) Fundal gastric ulcer Qualifiers: Gastric ulcer chronicity: acute Qualified Code(s): K25.3 - Acute gastric ulcer without hemorrhage or perforation Is this a current diagnosis for this admission?: Yes - Plan Summary Plan Summary: A/ POD#1 fter EGD w/ biopsy for upper gastrointestinal bleeding secondary to either ulcer or gastritis of the Nisen fundoplication wrap No further bleeding noted as the NGT output is bilious H/H= 6.7/20 this AM, down from 7.3/23 last night; the H/H drop most likely represents the consequence of previous bleeding and adminostration of intravenous fluids There is a theoretical concern about a possible malignant cause of the fundoplication wrap bleeding: benign versus malignant ulceration of the mucosa; no good visualization of the fundal bleeding area could be obtained during the EGD due to the hidden position of the bleeding area within the wrap Patient currently receiving 2 units if blood P/ Remove NGT Ice chips now, advance to clear liquid diet later today Continue Protonix IV drip Continue octeotripte IV drip continue Maalox/Carafate Advance diet slowly Continue to monitor CBC BId to identify further bleeding
--- NOTE | 2018-11-30 17:11 | PDOC PROGRESS REPORT ---
Subjective Progress Note for:: 11/30/18 Subjective:: This is 58 years old male patient was past medical history of hypertension and hyperlipidemia presented with massive hematemesis. He had undergone EGD and colonoscopy which was done by Dr. Enrique. Dr. Enrique states that the EGD no bleeding point in the stomach most probably the bleeding comes from fundoplication wrap around his esophagus. He states that the patient might have another spontaneous bleeding so it is appropriate to keep him until Thursday to monitor him with hemoglobin and hematocrit. At admission his hemoglobin was 11.3 and today it is 6.74 which 2 units of packed RBC ordered. Otherwise patient is clinically stable. Reason For Visit: ACUTE UPPER GI HEMORRHAGE Physical Exam Vital Signs: Temp Pulse Resp BP Pulse Ox 98.6 F 89 16 137/72 H 98 11/30/18 15:26 11/30/18 15:26 11/30/18 15:26 11/30/18 15:26 11/30/18 15:26 Intake & Output 11/29/18 11/30/18 12/01/18 06:59 06:59 06:59 Intake Total 3000 1340 600 Output Total 1825 Balance 3000 -485 600 Weight 108.7 kg 110.7 kg General appearance: PRESENT: no acute distress Eye exam: PRESENT: conjunctiva pink Neck exam: ABSENT: carotid bruit, JVD, lymphadenopathy, thyromegaly Respiratory exam: PRESENT: clear to auscultation m[place]geta. ABSENT: rales, rhonchi, wheezes Cardiovascular exam: PRESENT: RRR. ABSENT: diastolic murmur, rubs, systolic murmur GI/Abdominal exam: PRESENT: normal bowel sounds, soft. ABSENT: distended, guarding, mass, organolmegaly, rebound, tenderness Neurological exam: PRESENT: alert, awake, oriented to person, oriented to place, oriented to time, oriented to situation Results Laboratory Results: 11/30/18 07:20 11/30/18 07:20 11/28/18 11/29/18 11/30/18 21:55 17:58 00:47 WBC 34.3 H* 26.6 H RBC 2.87 L 2.55 L Hgb 8.6 L 7.7 L Hct 26.0 L 23.0 L MCV 91 90 MCH 29.8 30.3 MCHC 32.9 33.6 RDW 14.0 13.8 Plt Count 190 164 Seg Neutrophils % Not Reportable Lymphocytes % Not Reportable Monocytes % Not Reportable Eosinophils % Not Reportable Basophils % Not Reportable Absolute Neutrophils Not Reportable Absolute Lymphocytes Not Reportable Absolute Monocytes Not Reportable Absolute Eosinophils Not Reportable Absolute Basophils Not Reportable Retic Count (auto) Absolute Retic Sodium Potassium Chloride Carbon Dioxide Anion Gap BUN Creatinine Est GFR ( Amer) Est GFR (Non-Af Amer) Glucose Calcium Magnesium Blood Type O POSITIVE Antibody Screen NEGATIVE 11/30/18 11/30/18 11/30/18 07:20 07:20 07:20 WBC 24.7 H RBC 2.23 L Hgb 6.7 L Hct 20.0 L MCV 90 MCH 29.8 MCHC 33.3 RDW 14.3 H Plt Count 147 L Seg Neutrophils % Not Reportable Lymphocytes % Not Reportable Monocytes % Not Reportable Eosinophils % Not Reportable Basophils % Not Reportable Absolute Neutrophils Not Reportable Absolute Lymphocytes Not Reportable Absolute Monocytes Not Reportable Absolute Eosinophils Not Reportable Absolute Basophils Not Reportable Retic Count (auto) Cancelled Absolute Retic Cancelled Sodium 141.7 Potassium 4.2 Chloride 113 H Carbon Dioxide 25 Anion Gap 4 L BUN 25 H Creatinine 0.92 Est GFR ( Amer) > 60 Est GFR (Non-Af Amer) > 60 Glucose 132 H Calcium 7.6 L Magnesium 1.7 Blood Type Antibody Screen Impressions: Abdomen/Pelvis CT 11/29/18 00:00 IMPRESSION: NO SIGNIFICANT OR ACUTE FINDING IN THE ABDOMEN OR PELVIS ON CT SCAN WITH IV CONTRAST. Assessment and Plan - Diagnosis (1) Acute blood loss anemia/ upper GI bleed Is this a current diagnosis for this admission?: Yes Plan: Status post EGD and colonoscopy. His hemoglobin dropped from 11.3-6.7 and patient required 2 units of packed RBC. (2) Hypertension Qualifiers: Hypertension type: essential hypertension Qualified Code(s): I10 - Essential (primary) hypertension Is this a current diagnosis for this admission?: Yes Plan: Continue home medication (3) Hyperlipidemia Qualifiers: Hyperlipidemia type: unspecified Qualified Code(s): E78.5 - Hyperlipidemia, unspecified Is this a current diagnosis for this admission?: Yes Plan: Continue home medication
[2018-11-30 18:04] LABS: HEMATOCRIT 23.5 % (37.9-51.0); MEAN CORPUSCULAR HEMOGLOBIN 29.4 pg (27.0-33.4); MEAN CORPUSCULAR HGB CONC 33.7 g/dL (32.0-36.0); MEAN CORPUSCULAR VOLUME 87 fl (80-97); PLATELET COUNT 125 10^3/uL (150-450); RED CELL DISTRIBUTION WIDTH 15.1 % (11.5-14.0); WHITE BLOOD COUNT 21.7 10^3/uL (4.0-10.5)
[2018-11-30 18:45] LABS: BASOPHILS % (MANUAL) 0 % (0-2); TOTAL CELLS COUNTED 100
[2018-11-30 18:46] LABS: ANISOCYTOSIS SLIGHT; PLATELET COMMENT ADEQUATE
[2018-11-30 19:07] LABS: ABSOLUTE LYMPHOCYTES# (MANUAL) 12.2 10^3/uL (0.5-4.7); ABSOLUTE MONOCYTES # (MANUAL) 0.9 10^3/uL (0.1-1.4); ABSOLUTE NEUTROPHILS# (MANUAL) 8.7 10^3/uL (1.7-8.2); EOSINOPHILS % (MANUAL) 0 % (0-6); LYMPHOCYTES % (MANUAL) 56 % (13-45); MONOCYTES % (MANUAL) 4 % (3-13); SEGMENTED NEUTROPHILS % (MAN) 40 % (42-78)
[2018-11-30 19:10] LABS: HEMOGLOBIN 7.9 g/dL (13.5-17.0)
[2018-11-30 19:11] LABS: SMUDGE CELLS PRESENT
[2018-11-30 21:43] LABS: ABSOLUTE RETICS # 0.078 10^6/uL (0.028-0.122); RETICULOCYTE COUNT (AUTO) 2.94 % (0.66-2.85)
[2018-12-01] MEDS: NORMAL SALINE 100 ML with PANTOPRAZOLE SODIUM 80 MG IV PRN ×6 (02:42→21:50)
[2018-12-01] MEDS: MAG HYDROX/AL HYDROX/SIMETH SUSP 30 ML UDCUP NG SCH ×4 (02:42→21:49)
[2018-12-01] MEDS: SUCRALFATE 1 GM TABLET PO SCH ×4 (05:08→23:40)
[2018-12-01 05:18] LABS: HEMATOCRIT 22.5 % (37.9-51.0); MEAN CORPUSCULAR HEMOGLOBIN 29.4 pg (27.0-33.4); MEAN CORPUSCULAR HGB CONC 33.6 g/dL (32.0-36.0); MEAN CORPUSCULAR VOLUME 88 fl (80-97); PLATELET COUNT 117 10^3/uL (150-450); RED BLOOD COUNT 2.57 10^6/uL (4.35-5.55); RED CELL DISTRIBUTION WIDTH 15.1 % (11.5-14.0); WHITE BLOOD COUNT 16.8 10^3/uL (4.0-10.5)
[2018-12-01 05:22] LABS: HEMOGLOBIN 7.6 g/dL (13.5-17.0)
[2018-12-01 05:26] LABS: BLOOD UREA NITROGEN 16 mg/dL (7-20); CALCIUM 7.9 mg/dL (8.4-10.2); CARBON DIOXIDE 26 mmol/L (22-30); CHLORIDE 109 mmol/L (98-107); GLUCOSE 106 mg/dL (75-110); POTASSIUM 3.7 mmol/L (3.6-5.0); SODIUM 139.2 mmol/L (137-145)
[2018-12-01 05:46] LABS: ANION GAP 4 (5-19)
[2018-12-01 06:57] LABS: ABSOLUTE MONOCYTES # (MANUAL) 0.3 10^3/uL (0.1-1.4); BASOPHILS % (MANUAL) 0 % (0-2); EOSINOPHILS % (MANUAL) 1 % (0-6); MONOCYTES % (MANUAL) 2 % (3-13); TOTAL CELLS COUNTED 100
[2018-12-01 06:59] LABS: ABSOLUTE LYMPHOCYTES# (MANUAL) 7.1 10^3/uL (0.5-4.7); ABSOLUTE NEUTROPHILS# (MANUAL) 9.2 10^3/uL (1.7-8.2); LYMPHOCYTES % (MANUAL) 42 % (13-45); SEGMENTED NEUTROPHILS % (MAN) 55 % (42-78)
[2018-12-01 07:00] LABS: ANISOCYTOSIS SLIGHT; SMUDGE CELLS PRESENT
[2018-12-01 07:02] LABS: PLATELET COMMENT DECREASED; POLYCHROMASIA SLIGHT
--- NOTE | 2018-12-01 08:48 | PDOC PROGRESS REPORT ---
Subjective Progress Note for:: 12/01/18 Subjective:: Patient is still feeling very weak and dizzy. However, he is tolerating clear liquid diet now. He did still have some blood in stool this morning. Reason For Visit: ACUTE UPPER GI HEMORRHAGE Physical Exam Vital Signs: Temp Pulse Resp BP Pulse Ox 98.4 F 84 16 134/67 H 98 12/01/18 07:42 12/01/18 07:42 12/01/18 07:42 12/01/18 07:42 12/01/18 07:42 Intake & Output 11/30/18 12/01/18 12/02/18 06:59 06:59 06:59 Intake Total 1340 3894 Output Total 1825 1900 Balance -485 1993 Weight 110.7 kg 113 kg General appearance: PRESENT: well-developed, well-nourished Head exam: PRESENT: normocephalic Respiratory exam: PRESENT: unlabored Neurological exam: PRESENT: alert, awake Psychiatric exam: PRESENT: appropriate affect Skin exam: PRESENT: normal color Results Laboratory Results: 12/01/18 04:44 12/01/18 04:44 11/28/18 11/30/18 11/30/18 21:55 07:20 17:30 WBC 21.7 H RBC 2.70 L Hgb 7.9 L Hct 23.5 L MCV 87 MCH 29.4 MCHC 33.7 RDW 15.1 H Plt Count 125 L Seg Neutrophils % Not Reportable Lymphocytes % Not Reportable Monocytes % Not Reportable Eosinophils % Not Reportable Basophils % Not Reportable Absolute Neutrophils Not Reportable Absolute Lymphocytes Not Reportable Absolute Monocytes Not Reportable Absolute Eosinophils Not Reportable Absolute Basophils Not Reportable Retic Count (auto) Absolute Retic Sodium 141.7 Potassium 4.2 Chloride 113 H Carbon Dioxide 25 Anion Gap 4 L BUN 25 H Creatinine 0.92 Est GFR ( Amer) > 60 Est GFR (Non-Af Amer) > 60 Glucose 132 H Calcium 7.6 L Magnesium 1.7 Blood Type O POSITIVE Antibody Screen NEGATIVE 11/30/18 11/30/18 12/01/18 17:30 21:20 04:44 WBC 16.8 H RBC 2.57 L Hgb 7.6 L Hct 22.5 L MCV 88 MCH 29.4 MCHC 33.6 RDW 15.1 H Plt Count 117 L Seg Neutrophils % Not Reportable Lymphocytes % Not Reportable Monocytes % Not Reportable Eosinophils % Not Reportable Basophils % Not Reportable Absolute Neutrophils Not Reportable Absolute Lymphocytes Not Reportable Absolute Monocytes Not Reportable Absolute Eosinophils Not Reportable Absolute Basophils Not Reportable Retic Count (auto) Cancelled 2.94 H Absolute Retic Cancelled 0.078 Sodium Potassium Chloride Carbon Dioxide Anion Gap BUN Creatinine Est GFR ( Amer) Est GFR (Non-Af Amer) Glucose Calcium Magnesium Blood Type Antibody Screen 12/01/18 04:44 WBC RBC Hgb Hct MCV MCH MCHC RDW Plt Count Seg Neutrophils % Lymphocytes % Monocytes % Eosinophils % Basophils % Absolute Neutrophils Absolute Lymphocytes Absolute Monocytes Absolute Eosinophils Absolute Basophils Retic Count (auto) Absolute Retic Sodium 139.2 Potassium 3.7 Chloride 109 H Carbon Dioxide 26 Anion Gap 4 L BUN 16 Creatinine 0.85 Est GFR ( Amer) > 60 Est GFR (Non-Af Amer) > 60 Glucose 106 Calcium 7.9 L Magnesium 2.0 Blood Type Antibody Screen Impressions: Abdomen/Pelvis CT 11/29/18 00:00 IMPRESSION: NO SIGNIFICANT OR ACUTE FINDING IN THE ABDOMEN OR PELVIS ON CT SCAN WITH IV CONTRAST. Assessment & Plan - Diagnosis (1) Leukocytosis Qualifiers: Leukocytosis type: lymphocytosis Qualified Code(s): D72.820 - Lymphocytosis (symptomatic) Is this a current diagnosis for this admission?: Yes Plan: Improving. Most likely reactive, but may obtain peripheral blood flow cytometry as outpatient. (2) Upper GI bleed Is this a current diagnosis for this admission?: Yes Plan: His HGB dropped very quickly. I believe patient would feel much better with HGB closer to 10. However, he prefer to hold off any any further blood transfusions for now. His retic count is adequately increased. Will continue to follow and watch for evidence of further bleeding. I will defer to surgery.
--- NOTE | 2018-12-01 09:16 | PDOC PROGRESS REPORT ---
Subjective Progress Note for:: 12/01/18 Subjective:: 58 y/o M with upper GI bleeding. He reports a small amount of blood per rectum last night. He denies CP, SOB, Orthostasis. He does report headache and fatigue. No nausea, vomiting, abdominal pain, hematemesis. Reason For Visit: ACUTE UPPER GI HEMORRHAGE Physical Exam Vital Signs: Temp Pulse Resp BP Pulse Ox 98.4 F 84 16 134/67 H 98 12/01/18 07:42 12/01/18 07:42 12/01/18 07:42 12/01/18 07:42 12/01/18 07:42 Intake & Output 11/30/18 12/01/18 12/02/18 06:59 06:59 06:59 Intake Total 1340 3894 Output Total 1825 1900 Balance -485 1993 Weight 110.7 kg 113 kg General appearance: PRESENT: no acute distress, cooperative Head exam: PRESENT: atraumatic, normocephalic Eye exam: PRESENT: EOMI, PERRLA. ABSENT: scleral icterus Mouth exam: PRESENT: moist, neck supple Neck exam: ABSENT: meningismus, tenderness, thyromegaly, tracheal deviation Respiratory exam: PRESENT: unlabored. ABSENT: tachypnea, wheezes Cardiovascular exam: PRESENT: RRR Pulses: PRESENT: normal radial pulses Vascular exam: PRESENT: pallor GI/Abdominal exam: PRESENT: soft. ABSENT: distended, firm, guarding, tenderness Rectal exam: PRESENT: deferred Extremities exam: ABSENT: clubbing Musculoskeletal exam: ABSENT: deformity Neurological exam: PRESENT: alert, awake, oriented to person, oriented to place, oriented to time, oriented to situation, CN II-XII grossly intact. ABSENT: motor sensory deficit Psychiatric exam: ABSENT: agitated, anxious, depressed Focused psych exam: ABSENT: delusional Skin exam: ABSENT: cyanosis, erythema, jaundice Results Laboratory Results: 12/01/18 04:44 12/01/18 04:44 11/28/18 11/30/18 11/30/18 21:55 17:30 17:30 WBC 21.7 H RBC 2.70 L Hgb 7.9 L Hct 23.5 L MCV 87 MCH 29.4 MCHC 33.7 RDW 15.1 H Plt Count 125 L Seg Neutrophils % Not Reportable Lymphocytes % Not Reportable Monocytes % Not Reportable Eosinophils % Not Reportable Basophils % Not Reportable Absolute Neutrophils Not Reportable Absolute Lymphocytes Not Reportable Absolute Monocytes Not Reportable Absolute Eosinophils Not Reportable Absolute Basophils Not Reportable Retic Count (auto) Cancelled Absolute Retic Cancelled Sodium Potassium Chloride Carbon Dioxide Anion Gap BUN Creatinine Est GFR ( Amer) Est GFR (Non-Af Amer) Glucose Calcium Magnesium Blood Type O POSITIVE Antibody Screen NEGATIVE 11/30/18 12/01/18 12/01/18 21:20 04:44 04:44 WBC 16.8 H RBC 2.57 L Hgb 7.6 L Hct 22.5 L MCV 88 MCH 29.4 MCHC 33.6 RDW 15.1 H Plt Count 117 L Seg Neutrophils % Not Reportable Lymphocytes % Not Reportable Monocytes % Not Reportable Eosinophils % Not Reportable Basophils % Not Reportable Absolute Neutrophils Not Reportable Absolute Lymphocytes Not Reportable Absolute Monocytes Not Reportable Absolute Eosinophils Not Reportable Absolute Basophils Not Reportable Retic Count (auto) 2.94 H Absolute Retic 0.078 Sodium 139.2 Potassium 3.7 Chloride 109 H Carbon Dioxide 26 Anion Gap 4 L BUN 16 Creatinine 0.85 Est GFR ( Amer) > 60 Est GFR (Non-Af Amer) > 60 Glucose 106 Calcium 7.9 L Magnesium 2.0 Blood Type Antibody Screen Impressions: Abdomen/Pelvis CT 11/29/18 00:00 IMPRESSION: NO SIGNIFICANT OR ACUTE FINDING IN THE ABDOMEN OR PELVIS ON CT SCAN WITH IV CONTRAST. Assessment & Plan - Diagnosis (1) Gastric ulcer Qualifiers: Gastric ulcer chronicity: acute Is this a current diagnosis for this admission?: Yes (2) Gastrointestinal bleeding, upper Is this a current diagnosis for this admission?: Yes - Plan Summary Plan Summary: 58 y/o M with upper GI bleeding due to ulceration at the pt's previous fundoplication. He reports a small amount of dark blood per rectum last night. He denies any abdominal pain, nausea, vomiting, orthostasis. His Hgb is stable overnight. Advance diet. Cont to monitor.
[2018-12-01] MEDS: ACETAMINOPHEN 325 MG TABLET PO PRN (11:28)
[2018-12-01 13:20] LABS: HEMATOCRIT 22.4 % (37.9-51.0); MEAN CORPUSCULAR HEMOGLOBIN 29.5 pg (27.0-33.4); MEAN CORPUSCULAR HGB CONC 33.5 g/dL (32.0-36.0); MEAN CORPUSCULAR VOLUME 88 fl (80-97); PLATELET COUNT 115 10^3/uL (150-450); RED BLOOD COUNT 2.55 10^6/uL (4.35-5.55); RED CELL DISTRIBUTION WIDTH 15.2 % (11.5-14.0); WHITE BLOOD COUNT 14.1 10^3/uL (4.0-10.5)
[2018-12-01 13:22] LABS: HEMOGLOBIN 7.5 g/dL (13.5-17.0)
--- NOTE | 2018-12-01 13:40 | PDOC PROGRESS REPORT ---
Subjective Progress Note for:: 12/01/18 Subjective:: Patient seen lying in bed comfortably. He is awake alert oriented and is not in pain or distress. He complains of generalized body weakness which might be related to his anemia. He reports this the melanotic stool and bleeding per rectum is decreasing. His hemoglobin very slightly dropped from 7.6-7.5. His leukocytosis is improving from 21.7-14.1. We will continue to monitor his H&H. Reason For Visit: ACUTE UPPER GI HEMORRHAGE Physical Exam Vital Signs: Temp Pulse Resp BP Pulse Ox 98.1 F 89 18 144/79 H 100 12/01/18 11:38 12/01/18 11:38 12/01/18 11:38 12/01/18 11:38 12/01/18 11:38 Intake & Output 11/30/18 12/01/18 12/02/18 06:59 06:59 06:59 Intake Total 1340 3894 Output Total 1825 1900 Balance -485 1994 Weight 110.7 kg 113 kg General appearance: PRESENT: no acute distress, well-developed, well-nourished Head exam: PRESENT: atraumatic, normocephalic Eye exam: PRESENT: conjunctiva pale Ear exam: PRESENT: normal external ear exam Mouth exam: PRESENT: moist, tongue midline Neck exam: ABSENT: carotid bruit, JVD, lymphadenopathy, thyromegaly Respiratory exam: PRESENT: clear to auscultation mulugeta. ABSENT: rales, rhonchi, wheezes Cardiovascular exam: PRESENT: RRR. ABSENT: diastolic murmur, rubs, systolic murmur Pulses: PRESENT: normal dorsalis pedis pul Vascular exam: PRESENT: normal capillary refill GI/Abdominal exam: PRESENT: normal bowel sounds, soft. ABSENT: distended, guarding, mass, organolmegaly, rebound, tenderness Rectal exam: PRESENT: deferred Extremities exam: PRESENT: full ROM. ABSENT: calf tenderness, clubbing, pedal edema Neurological exam: PRESENT: alert, awake, oriented to person, oriented to place, oriented to time, oriented to situation, CN II-XII grossly intact. ABSENT: motor sensory deficit Psychiatric exam: PRESENT: appropriate affect, normal mood. ABSENT: homicidal ideation, suicidal ideation Skin exam: PRESENT: dry, intact, warm. ABSENT: cyanosis, rash Results Laboratory Results: 12/01/18 12:53 06/05/19 04:44 11/30/18 11/30/18 11/30/18 17:30 17:30 21:20 WBC 21.7 H RBC 2.70 L Hgb 7.9 L Hct 23.5 L MCV 87 MCH 29.4 MCHC 33.7 RDW 15.1 H Plt Count 125 L Seg Neutrophils % Not Reportable Lymphocytes % Not Reportable Monocytes % Not Reportable Eosinophils % Not Reportable Basophils % Not Reportable Absolute Neutrophils Not Reportable Absolute Lymphocytes Not Reportable Absolute Monocytes Not Reportable Absolute Eosinophils Not Reportable Absolute Basophils Not Reportable Retic Count (auto) Cancelled 2.94 H Absolute Retic Cancelled 0.078 Sodium Potassium Chloride Carbon Dioxide Anion Gap BUN Creatinine Est GFR ( Amer) Est GFR (Non-Af Amer) Glucose Calcium Magnesium 12/01/18 12/01/18 12/01/18 04:44 04:44 12:53 WBC 16.8 H 14.1 H RBC 2.57 L 2.55 L Hgb 7.6 L 7.5 L Hct 22.5 L 22.4 L MCV 88 88 MCH 29.4 29.5 MCHC 33.6 33.5 RDW 15.1 H 15.2 H Plt Count 117 L 115 L Seg Neutrophils % Not Reportable Lymphocytes % Not Reportable Monocytes % Not Reportable Eosinophils % Not Reportable Basophils % Not Reportable Absolute Neutrophils Not Reportable Absolute Lymphocytes Not Reportable Absolute Monocytes Not Reportable Absolute Eosinophils Not Reportable Absolute Basophils Not Reportable Retic Count (auto) Absolute Retic Sodium 139.2 Potassium 3.7 Chloride 109 H Carbon Dioxide 26 Anion Gap 4 L BUN 16 Creatinine 0.85 Est GFR ( Amer) > 60 Est GFR (Non-Af Amer) > 60 Glucose 106 Calcium 7.9 L Magnesium 2.0 Impressions: Abdomen/Pelvis CT 11/29/18 00:00 IMPRESSION: NO SIGNIFICANT OR ACUTE FINDING IN THE ABDOMEN OR PELVIS ON CT SCAN WITH IV CONTRAST. Assessment and Plan - Diagnosis (1) Acute blood loss anemia/ upper GI bleed Is this a current diagnosis for this admission?: Yes Plan: Monitor his H&H. (2) Hypertension Qualifiers: Hypertension type: essential hypertension Qualified Code(s): I10 - Essential (primary) hypertension Is this a current diagnosis for this admission?: Yes Plan: Continue home medication (3) Hyperlipidemia Qualifiers: Hyperlipidemia type: unspecified Qualified Code(s): E78.5 - Hyperlipidemia, unspecified Is this a current diagnosis for this admission?: Yes Plan: Continue home medication
--- NOTE | 2018-12-01 16:27 | Progress Note ---
Provider Note Provider Note: Patient's pathology has returned. He has no sign of H. pylori or malignancy. The patient will require repeat endoscopy in 4 to 6 weeks. Follow-up with [facility] in 2 to 4 weeks to schedule repeat endoscopy. Please continue PPI. Surgery will sign off for now. Okay for discharge if no further signs of bleeding are identified overnight. Please renotify with any questions or concerns.
[2018-12-01 18:14] LABS: HEMATOCRIT 22.8 % (37.9-51.0); MEAN CORPUSCULAR HEMOGLOBIN 29.9 pg (27.0-33.4); MEAN CORPUSCULAR HGB CONC 34.2 g/dL (32.0-36.0); MEAN CORPUSCULAR VOLUME 87 fl (80-97); PLATELET COUNT 123 10^3/uL (150-450); RED BLOOD COUNT 2.61 10^6/uL (4.35-5.55); RED CELL DISTRIBUTION WIDTH 15.3 % (11.5-14.0); WHITE BLOOD COUNT 14.3 10^3/uL (4.0-10.5)
[2018-12-01 18:16] LABS: HEMOGLOBIN 7.8 g/dL (13.5-17.0)
[2018-12-02 00:25] LABS: HEMATOCRIT 22.5 % (37.9-51.0); MEAN CORPUSCULAR HEMOGLOBIN 29.5 pg (27.0-33.4); MEAN CORPUSCULAR HGB CONC 33.7 g/dL (32.0-36.0); MEAN CORPUSCULAR VOLUME 87 fl (80-97); PLATELET COUNT 123 10^3/uL (150-450); RED BLOOD COUNT 2.58 10^6/uL (4.35-5.55); RED CELL DISTRIBUTION WIDTH 14.8 % (11.5-14.0); WHITE BLOOD COUNT 13.3 10^3/uL (4.0-10.5)
[2018-12-02 00:42] LABS: HEMOGLOBIN 7.6 g/dL (13.5-17.0)
[2018-12-02] MEDS: MAG HYDROX/AL HYDROX/SIMETH SUSP 30 ML UDCUP NG SCH ×4 (02:32→22:00)
[2018-12-02 05:13] LABS: HEMATOCRIT 22.5 % (37.9-51.0); MEAN CORPUSCULAR HEMOGLOBIN 29.6 pg (27.0-33.4); MEAN CORPUSCULAR HGB CONC 33.7 g/dL (32.0-36.0); MEAN CORPUSCULAR VOLUME 88 fl (80-97); PLATELET COUNT 129 10^3/uL (150-450); RED BLOOD COUNT 2.55 10^6/uL (4.35-5.55); RED CELL DISTRIBUTION WIDTH 15.1 % (11.5-14.0); WHITE BLOOD COUNT 14.1 10^3/uL (4.0-10.5)
[2018-12-02 05:35] LABS: ABSOLUTE MONOCYTES # (MANUAL) 0.3 10^3/uL (0.1-1.4); BAND NEUTROPHILS % (MANUAL) 1 % (3-5); BASOPHILS % (MANUAL) 1 % (0-2); EOSINOPHILS % (MANUAL) 0 % (0-6); MONOCYTES % (MANUAL) 2 % (3-13)
[2018-12-02 05:36] LABS: ABSOLUTE LYMPHOCYTES# (MANUAL) 3.8 10^3/uL (0.5-4.7); ABSOLUTE NEUTROPHILS# (MANUAL) 9.9 10^3/uL (1.7-8.2); LYMPHOCYTES % (MANUAL) 25 % (13-45); SEGMENTED NEUTROPHILS % (MAN) 69 % (42-78); TOTAL CELLS COUNTED 100
[2018-12-02 05:37] LABS: ANISOCYTOSIS SLIGHT; OVALOCYTES 1+; PLATELET COMMENT DECREASED; POLYCHROMASIA SLIGHT; STOMATOCYTES SLIGHT
[2018-12-02] MEDS: SUCRALFATE 1 GM TABLET PO SCH ×4 (05:38→23:22)
[2018-12-02 05:39] LABS: HEMOGLOBIN 7.6 g/dL (13.5-17.0)
[2018-12-02] MEDS: NORMAL SALINE 100 ML with PANTOPRAZOLE SODIUM 80 MG IV PRN ×2 (08:00)
--- NOTE | 2018-12-02 08:09 | PDOC PROGRESS REPORT ---
Subjective Progress Note for:: 12/02/18 Subjective:: Patient states that he is feeling much better and is anxious to go home. ROS: no further bleeding. No dyspnea. Still weak all over. Reason For Visit: ACUTE UPPER GI HEMORRHAGE Physical Exam Vital Signs: Temp Pulse Resp BP Pulse Ox 98.1 F 68 18 137/76 H 97 12/02/18 07:34 12/02/18 07:34 12/02/18 07:34 12/02/18 07:34 12/02/18 07:34 Intake & Output 12/01/18 12/02/18 12/03/18 06:59 06:59 06:59 Intake Total 3894 4292 Output Total 1900 2775 Balance 1993 151 Weight 113 kg 109.5 kg General appearance: PRESENT: no acute distress, well-developed Exam: Overweight Head exam: PRESENT: normocephalic Respiratory exam: PRESENT: clear to auscultation mulugeta, unlabored Cardiovascular exam: PRESENT: RRR Neurological exam: PRESENT: alert, awake Psychiatric exam: PRESENT: appropriate affect Skin exam: PRESENT: normal color Results Laboratory Results: 12/02/18 04:10 12/01/18 04:44 12/01/18 12/01/18 12/02/18 12:53 18:05 00:17 WBC 14.1 H 14.3 H 13.3 H RBC 2.55 L 2.61 L 2.58 L Hgb 7.5 L 7.8 L 7.6 L Hct 22.4 L 22.8 L 22.5 L MCV 88 87 87 MCH 29.5 29.9 29.5 MCHC 33.5 34.2 33.7 RDW 15.2 H 15.3 H 14.8 H Plt Count 115 L 123 L 123 L Seg Neutrophils % Lymphocytes % Monocytes % Eosinophils % Basophils % Absolute Neutrophils Absolute Lymphocytes Absolute Monocytes Absolute Eosinophils Absolute Basophils 12/02/18 04:10 WBC 14.1 H RBC 2.55 L Hgb 7.6 L Hct 22.5 L MCV 88 MCH 29.6 MCHC 33.7 RDW 15.1 H Plt Count 129 L Seg Neutrophils % Not Reportable Lymphocytes % Not Reportable Monocytes % Not Reportable Eosinophils % Not Reportable Basophils % Not Reportable Absolute Neutrophils Not Reportable Absolute Lymphocytes Not Reportable Absolute Monocytes Not Reportable Absolute Eosinophils Not Reportable Absolute Basophils Not Reportable Impressions: Abdomen/Pelvis CT 11/29/18 00:00 IMPRESSION: NO SIGNIFICANT OR ACUTE FINDING IN THE ABDOMEN OR PELVIS ON CT SCAN WITH IV CONTRAST. Assessment & Plan - Diagnosis (1) Leukocytosis Qualifiers: Leukocytosis type: lymphocytosis Qualified Code(s): D72.820 - Lymphocytosis (symptomatic) Is this a current diagnosis for this admission?: Yes Plan: Continues to improve. I will continue to follow as outpatient. (2) Upper GI bleed Is this a current diagnosis for this admission?: Yes Plan: HGB has remained stable for past 24 hours. I still believe due to the acute nature of his bleed, he would be better with another 2 units pRBCs prior to discharge, but will defer to Primary team. I will continue to follow CBC weekly as outpatient. (3) Thrombocytopenia Is this a current diagnosis for this admission?: Yes Plan: Most likely consumptive. I will follow as outpatient. - Plan Summary Plan Summary: OK for discharge from my standpoint. Will follow as outpatient. Please call if any further questions or concerns.
[2018-12-02] MEDS ORDERED: NORMAL SALINE 250 ML IV PRN ×2 (09:59)
[2018-12-02] MEDS: ACETAMINOPHEN 325 MG TABLET PO PRN (13:45)
--- NOTE | 2018-12-02 15:12 | PDOC PROGRESS REPORT ---
Subjective Progress Note for:: 12/02/18 Subjective:: Patient remained stable clinically. His hemoglobin holding at 7.5. His diet advanced to solid diet. I will transfuse him 1 unit of packed RBC. If he is able to tolerate food and is rectal bleeding stopped completely his potential discharge for tomorrow. Reason For Visit: ACUTE UPPER GI HEMORRHAGE Physical Exam Vital Signs: Temp Pulse Resp BP Pulse Ox 98.4 F 76 19 130/74 H 98 12/02/18 14:46 12/02/18 14:46 12/02/18 14:46 12/02/18 14:46 12/02/18 14:20 Intake & Output 12/01/18 12/02/18 12/03/18 06:59 06:59 06:59 Intake Total 3894 4292 960 Output Total 1900 2775 950 Balance 1993 1517 10 Weight 113 kg 109.5 kg General appearance: PRESENT: no acute distress Head exam: PRESENT: atraumatic Mouth exam: PRESENT: dry mucosa Neck exam: ABSENT: carotid bruit, JVD, lymphadenopathy, thyromegaly Respiratory exam: PRESENT: clear to auscultation mulugeta. ABSENT: rales, rhonchi, wheezes Cardiovascular exam: PRESENT: RRR. ABSENT: diastolic murmur, rubs, systolic murmur GI/Abdominal exam: PRESENT: normal bowel sounds, soft. ABSENT: distended, guarding, mass, organolmegaly, rebound, tenderness Neurological exam: PRESENT: alert, awake, oriented to person, oriented to place, oriented to time, oriented to situation Results Laboratory Results: 12/02/18 04:10 12/01/18 04:44 12/01/18 12/02/18 12/02/18 18:05 00:17 04:10 WBC 14.3 H 13.3 H 14.1 H RBC 2.61 L 2.58 L 2.55 L Hgb 7.8 L 7.6 L 7.6 L Hct 22.8 L 22.5 L 22.5 L MCV 87 87 88 MCH 29.9 29.5 29.6 MCHC 34.2 33.7 33.7 RDW 15.3 H 14.8 H 15.1 H Plt Count 123 L 123 L 129 L Seg Neutrophils % Not Reportable Lymphocytes % Not Reportable Monocytes % Not Reportable Eosinophils % Not Reportable Basophils % Not Reportable Absolute Neutrophils Not Reportable Absolute Lymphocytes Not Reportable Absolute Monocytes Not Reportable Absolute Eosinophils Not Reportable Absolute Basophils Not Reportable Blood Type Antibody Screen 12/02/18 11:32 WBC RBC Hgb Hct MCV MCH MCHC RDW Plt Count Seg Neutrophils % Lymphocytes % Monocytes % Eosinophils % Basophils % Absolute Neutrophils Absolute Lymphocytes Absolute Monocytes Absolute Eosinophils Absolute Basophils Blood Type O POSITIVE Antibody Screen NEGATIVE Impressions: Abdomen/Pelvis CT 11/29/18 00:00 IMPRESSION: NO SIGNIFICANT OR ACUTE FINDING IN THE ABDOMEN OR PELVIS ON CT SCAN WITH IV CONTRAST. Assessment and Plan - Diagnosis (1) Acute blood loss anemia/ upper GI bleed Is this a current diagnosis for this admission?: Yes Plan: Monitor his H&H. (2) Hypertension Qualifiers: Hypertension type: essential hypertension Qualified Code(s): I10 - Essential (primary) hypertension Is this a current diagnosis for this admission?: Yes Plan: Continue home medication (3) Hyperlipidemia Qualifiers: Hyperlipidemia type: unspecified Qualified Code(s): E78.5 - Hyperlipidemia, unspecified Is this a current diagnosis for this admission?: Yes Plan: Continue home medication
[2018-12-02 19:49] LABS: HEMATOCRIT 26.2 % (37.9-51.0); HEMOGLOBIN 8.8 g/dL (13.5-17.0); MEAN CORPUSCULAR HEMOGLOBIN 29.9 pg (27.0-33.4); MEAN CORPUSCULAR HGB CONC 33.7 g/dL (32.0-36.0); MEAN CORPUSCULAR VOLUME 89 fl (80-97); PLATELET COUNT 144 10^3/uL (150-450); RED BLOOD COUNT 2.95 10^6/uL (4.35-5.55); RED CELL DISTRIBUTION WIDTH 14.5 % (11.5-14.0); WHITE BLOOD COUNT 13.9 10^3/uL (4.0-10.5)
[2018-12-02 20:02] LABS: ABSOLUTE LYMPHOCYTES# (MANUAL) 9.7 10^3/uL (0.5-4.7); ABSOLUTE MONOCYTES # (MANUAL) 0.4 10^3/uL (0.1-1.4); ABSOLUTE NEUTROPHILS# (MANUAL) 3.5 10^3/uL (1.7-8.2); BASOPHILS % (MANUAL) 1 % (0-2); EOSINOPHILS % (MANUAL) 1 % (0-6); LYMPHOCYTES % (MANUAL) 70 % (13-45); MONOCYTES % (MANUAL) 3 % (3-13); SEGMENTED NEUTROPHILS % (MAN) 25 % (42-78); TOTAL CELLS COUNTED 100
[2018-12-02 20:03] LABS: ANISOCYTOSIS 2+
[2018-12-02 20:05] LABS: OVALOCYTES SLIGHT; STOMATOCYTES 1+
[2018-12-02 20:06] LABS: PLATELET COMMENT DECREASED; POLYCHROMASIA SLIGHT
[2018-12-03] MEDS: MAG HYDROX/AL HYDROX/SIMETH SUSP 30 ML UDCUP NG SCH ×2 (04:00→10:05)
[2018-12-03 05:25] LABS: HEMATOCRIT 26.5 % (37.9-51.0); MEAN CORPUSCULAR HEMOGLOBIN 29.8 pg (27.0-33.4); MEAN CORPUSCULAR HGB CONC 33.9 g/dL (32.0-36.0); MEAN CORPUSCULAR VOLUME 88 fl (80-97); PLATELET COUNT 158 10^3/uL (150-450); RED BLOOD COUNT 3.01 10^6/uL (4.35-5.55); RED CELL DISTRIBUTION WIDTH 15.1 % (11.5-14.0); WHITE BLOOD COUNT 16.2 10^3/uL (4.0-10.5)
[2018-12-03] MEDS: SUCRALFATE 1 GM TABLET PO SCH (06:06)
--- NOTE | 2018-12-03 08:14 | PDOC DISCHARGE SUMMARY ---
General - Admit/Disc Date/PCP Admission Date/Primary Care Provider: 11/28/18 23:23 Discharge Date: 12/03/18 - Discharge Diagnosis (1) Acute blood loss anemia/ upper GI bleed Is this a current diagnosis for this admission?: Yes (2) Hypertension Is this a current diagnosis for this admission?: Yes (3) Hyperlipidemia Is this a current diagnosis for this admission?: Yes - Additional Information Resuscitation Status: Full Code Home Medications: Atorvastatin Calcium [Lipitor 20 mg Tablet] 20 mg PO QHS 11/29/18 Cyclobenzaprine HCl [Flexeril 10 mg Tablet] 10 mg PO TIDP PRN 11/29/18 Doxycycline Hyclate [Vibramycin] 100 mg PO DAILY 11/29/18 Hydrochlorothiazide [Hydrodiuril 25 mg Tablet] 25 mg PO DAILY 11/29/18 Meloxicam [Mobic] 15 mg PO DAILYP PRN 11/29/18 Metoprolol Succinate [Toprol Xl 50 mg Tab.sr] 50 mg PO DAILY 11/29/18 History of Present Illness History of Present Illness: FAROOQ LEVI is a 58 year old malewho presented to the emergency room with an acute episode of severe hematemesis. He admits that he experienced the sudden onset of one large bright red bloody emesis at work at approximately 1300 prior to his eventual trip to home and subsequent coming to the emergency room. He acknowledges a mild headache on arising the morning of this event. He took Tylenol for the headache and subsequently noticed the gradual development of nausea and diaphoresis over the next few hours prior to his episode of hematemesis. He admits minimal intermittent localized epigastric discomfort, palpitations, severe diaphoresis, several near-syncopal/orthostatic hypotensive episodes after the event and the subsequent passage of bright red blood rectally followed by multiple melenic stools associated with his hematemesis. He denies prior similar episodes and has not identified any aggravating or ameliorating factors for his hematemesis. In the emergency room he was found to be mildly tachycardic without hypotension. He is remained hemodynamically stable after being started on IV fluids and a Protonix infusion. His initial lab work showed a hyperkalemia of 6.1 and a white blood count of 30,000 with a significant lymphocytic predominance possibly reflecting a chronic lymphocytic leukemia or other bone marrow dyscrasia. Patient will be admitted to the [facility] for further evaluation and treatment. Hospital Course Hospital Course: This is 58 years old male patient was past medical history of hypertension and hyperlipidemia presented with massive hematemesis. He had undergone EGD and colonoscopy which was done by Dr. Enrique. Dr. Enrique states that the EGD no bleeding point in the stomach most probably the bleeding comes from fundoplication wrap around his esophagus. He states that the patient might have another spontaneous bleeding so it is appropriate to keep him until Thursday to monitor him with hemoglobin and hematocrit. At admission his hemoglobin was 11.3 and today it is 6.74 which 2 units of packed RBC ordered. Yesterday patient transfused 1 unit of packed RBC and his hemoglobin today is 8. His diet advanced to solid and patient eats well and tolerates well. He does not have any nausea vomiting or diarrhea. His vital signs are stable. Patient is good to go home today. I will set up follow-up with surgical clinic and . Physical Exam Vital Signs: Temp Pulse Resp BP Pulse Ox 98.4 F 80 20 141/83 H 99 12/03/18 04:00 12/03/18 04:00 12/03/18 04:00 12/03/18 04:00 12/03/18 04:00 Intake & Output 12/02/18 12/03/18 12/04/18 06:59 06:59 06:59 Intake Total 4292 2194 Output Total 2775 2025 Balance 1517 169 Weight 109.5 kg General appearance: PRESENT: no acute distress, well-developed, well-nourished Head exam: PRESENT: atraumatic, normocephalic Eye exam: PRESENT: conjunctiva pink, EOMI, PERRLA. ABSENT: scleral icterus Ear exam: PRESENT: normal external ear exam Mouth exam: PRESENT: moist, tongue midline Neck exam: ABSENT: carotid bruit, JVD, lymphadenopathy, thyromegaly Respiratory exam: PRESENT: clear to auscultation mulugeta. ABSENT: rales, rhonchi, wheezes Cardiovascular exam: PRESENT: RRR. ABSENT: diastolic murmur, rubs, systolic murmur Pulses: PRESENT: normal dorsalis pedis pul Vascular exam: PRESENT: normal capillary refill GI/Abdominal exam: PRESENT: normal bowel sounds, soft. ABSENT: distended, gu arding, mass, organolmegaly, rebound, tenderness Rectal exam: PRESENT: deferred Extremities exam: PRESENT: full ROM. ABSENT: calf tenderness, clubbing, pedal edema Neurological exam: PRESENT: alert, awake, oriented to person, oriented to place, oriented to time, oriented to situation, CN II-XII grossly intact. ABSENT: mot or sensory deficit Psychiatric exam: PRESENT: appropriate affect, normal mood. ABSENT: homicidal ideation, suicidal ideation Skin exam: PRESENT: dry, intact, warm. ABSENT: cyanosis, rash Results Laboratory Results: 12/03/18 04:49 12/01/18 04:44 12/02/18 12/02/18 12/03/18 11:32 19:27 04:49 WBC 13.9 H 16.2 H RBC 2.95 L 3.01 L Hgb 8.8 L 9.0 L Hct 26.2 L 26.5 L MCV 89 88 MCH 29.9 29.8 MCHC 33.7 33.9 RDW 14.5 H 15.1 H Plt Count 144 L 158 Seg Neutrophils % Not Reportable Lymphocytes % Not Reportable Monocytes % Not Reportable Eosinophils % Not Reportable Basophils % Not Reportable Absolute Neutrophils Not Reportable Absolute Lymphocytes Not Reportable Absolute Monocytes Not Reportable Absolute Eosinophils Not Reportable Absolute Basophils Not Reportable Blood Type O POSITIVE Antibody Screen NEGATIVE Impressions: Abdomen/Pelvis CT 11/29/18 00:00 IMPRESSION: NO SIGNIFICANT OR ACUTE FINDING IN THE ABDOMEN OR PELVIS ON CT SCAN WITH IV CONTRAST. Qualifiers - * PATIENT BEING DISCHARGED WITH ANY OF THE FOLLOWING DIAGNOSIS: No Acute Heart Failure Is this a Heart Failure Patient?: No
[2018-12-03 08:52] VITALS: BP 128/77
== END 2018-12-03 10:08 | disposition home or self-care (01) | DRG 378 ==
LOC: ER 20:32 → EH 23:23 → 3W 11-29 01:22 → ICU 11-29 15:35 → 3W 11-29 23:23
PROVIDERS: ADMIT Emergency Medicine; ATTEND Emergency Medicine
PROC: 0DD48ZX Extraction of Esophagogastric Junction, Via Natural or Artificial Opening Endoscopic, Diagnostic (ICD-10-PCS; principal; 2018-11-29 13:30)
PROC: 30233N1 Transfusion of Nonautologous Red Blood Cells into Peripheral Vein, Percutaneous Approach (ICD-10-PCS; 2018-11-30)
PROC: 30233N1 Transfusion of Nonautologous Red Blood Cells into Peripheral Vein, Percutaneous Approach (ICD-10-PCS; 2018-12-02)
DX: K29.61 Other gastritis with bleeding (principal); D62 Acute posthemorrhagic anemia; K25.4 Chronic or unspecified gastric ulcer with hemorrhage; E87.5 Hyperkalemia; K92.0 Hematemesis; I10 Essential (primary) hypertension; D72.820 Lymphocytosis (symptomatic); E78.00 Pure hypercholesterolemia, unspecified; D69.6 Thrombocytopenia, unspecified; Z98.890 Other specified postprocedural states
CPT/HCPCS: 36415; 36430; 43239; 74177; 80048; 80053; 80061; 81001; 82962; 83735; 85025; 85027; 85045; 85610; 85730; 86850; 86900; 86901; 86920; 88305; 93005; 93010; 96365; 96375; 99285; J0171; J1200; J1610; J1815; J1940; J2250; J2310; J2354; J2405; J3010; J3490; J7030; J7040; J7050; P9016; S0164

== ENCOUNTER 2018-12-04 13:25 | Inpatient (IN) | payer OTHER ==
--- NOTE | 2018-12-04 14:02 | ER Document Report ---
ED General - General Chief Complaint: Weakness Stated Complaint: SICK Time Seen by Provider: 12/04/18 14:02 Notes: Patient is a 58-year-old male that presents to the emergency department for chief complaint of lightheadedness, weakness. Patient was recently admitted for upper GI bleed, received 3 units during his admission, had upper endoscopy, they could not identify the discrete cause of bleeding, but did no blood in the stomach, he received transfusion as noted, and prior to discharge did not have any blood in his bowel movements, but was still feeling rather weak but he was discharged home. Today he felt even more weak and almost passed out so he decided come to the emergency department. He has not had any nausea, vomiting or abdominal pain today. He denies having any chest pain, shortness of breath or difficulty breathing. Past Medical History: GERD Past Surgical History: Liz fundoplication Social History: Denies tobacco use, admits to rare alcohol use, denies illicit drug use. Family History: Reviewed and noncontributory for presenting illness Allergies: Reviewed, see documented allergy list. REVIEW OF SYSTEMS: Other than noted above, the 12 point review of systems was reviewed with the patient and were negative, all pertinent findings are included in the HPI. PHYSICAL EXAMINATION: Vital signs reviewed, nursing noted reviewed. GENERAL: Well-appearing, well-nourished and in no acute distress. HEAD: Atraumatic, normocephalic. EYES: Eyes appear normal, extraocular movements intact, sclera anicteric, conjunctiva are normal. ENT: nares patent, oropharynx clear without exudates. Moist mucous membranes. NECK: Normal range of motion, supple without lymphadenopathy LUNGS: Breath sounds clear to auscultation bilaterally and equal. No wheezes rales or rhonchi. HEART: Regular rate and rhythm without murmurs ABDOMEN: Soft, nontender, normoactive bowel sounds. No rebound, guarding, or rigidity. No masses appreciated. EXTREMITIES: Nontender, good range of motion, no pitting or edema. NEUROLOGICAL: No focal neurological deficits. Moves all extremities spontaneously Motor and sensory grossly intact on exam. PSYCH: Normal mood, normal affect. SKIN: Warm, Dry, normal turgor, pallor noted TRAVEL OUTSIDE OF THE [place] IN LAST 30 DAYS: No - Related Data Allergies/Adverse Reactions: No Known Allergies Allergy (Unverified 02/04/12 19:25) Past Medical History - Social History Smoking Status: Never Smoker Chew tobacco use (# tins/day): No Frequency of alcohol use: Occasional Drug Abuse: None Family History: Reviewed & Not Pertinent Patient has suicidal ideation: No Patient has homicidal ideation: No - Past Medical History Cardiac Medical History: Reports: Hx Hypercholesterolemia, Hx Hypertension Denies: Hx Atrial Fibrillation, Hx Congestive Heart Failure, Hx Coronary Artery Disease, Hx Heart Attack, Hx Peripheral Vascular Disease, Hx Pulmonary Embolism, Hx Heart Murmur Pulmonary Medical History: Denies: Hx Asthma, Hx Bronchitis, Hx COPD, Hx Pneumonia, Hx Respiratory Failure, Hx Sleep Apnea, Hx Tuberculosis Neurological Medical History: Denies: Hx Cerebrovascular Accident, Hx Seizures Endocrine Medical History: Denies: Hx Diabetes Mellitus Type 1, Hx Diabetes Mellitus Type 2, Hx Graves' Disease, Hx Hyperthyroidism, Hx Hypothyroidism Renal/ Medical History: Denies: Hx Benign Prostatic Hyperplasia, Hx End Stage Renal Disease, Hx Kidney Stones, Hx Peritoneal Dialysis Malignancy Medical History: Denies Hx Leukemia, Denies Hx Lung Cancer GI Medical History: Reports: Hx Hiatal Hernia. Denies: Hx Cirrhosis, Hx Crohn's Disease, Hx Diverticulitis, Hx Gastroesophageal Reflux Disease, Hx Hepatitis, Hx Irritable Bowel, Hx Liver Failure, Hx Pancreatitis, Hx Ulcer, Hx Ulcerative Colitis Musculoskeletal Medical History: Denies Hx Arthritis, Denies Hx Fibromyalgia, Denies Hx Multiple Sclerosis, Denies Hx Muscular Dystrophy, Denies Hx Systemic Lupus Erythematosus Skin Medical History: Denies Hx Eczema, Denies Hx Psoriasis Psychiatric Medical History: Denies: Hx Bipolar Disorder, Hx Dementia, Hx Depression, Hx Post Traumatic Stress Disorder, Hx Schizophrenia Traumatic Medical History: Reports: Hx Fractures - Right foot- big and little toe Infectious Medical History: Denies: Hx Hepatitis, Hx HIV Past Surgical History: Reports: Hx Cholecystectomy, Hx Orthopedic Surgery - Bilateral knee replacements, Hx Thyroid Surgery - parathyroid removal, Hx Tonsillectomy, Other - Umang fundoplication, parathyroidectomy. Denies: Hx Appendectomy, Hx Bowel Surgery, Hx Colostomy, Hx Coronary Artery Bypass Graft, Hx Gastric Bypass Surgery, Hx Herniorrhaphy, Hx Pacemaker Physical Exam - Vital signs Vitals: Resp 15 12/04/18 13:28 Course - Re-evaluation Re-evalutation: Patient seen and examined vital signs reviewed. Laboratory data and imaging were ordered as appropriate for the patient's presenting symptoms and complaint, with consideration of any critical or life threatening conditions that may be associated with their obtained history and exam as noted above. Patient was treated with IV fluid bolus, and 2 units of packed red blood cells were ordered, patient was started on IV Protonix bolus and infusion Results were reviewed when available and demonstrated hemoglobin of 6.3, significant drop from his recent blood work yesterday that demonstrated hemoglobin of 9 at that time, he did have an elevated BUN, without elevation of creatinine. The patient was re-evaluated and was stable, hemodynamically his heart rate was improving, I discussed the case with the surgeon on-call Dr. Cooper, he came to see the patient at bedside, recommended placing NG, to see if the patient was actively bleeding at this time. Evaluation was most consistent with acute GI hemorrhage, acute blood loss anemia Results were discussed with the patient at this point after careful consideration I feel that that patient should be admitted to the hospital. This was discussed with the patient that it is in the best interest for their care to be admitted for further evaluation and management. Patient agreed with this plan of care. A call was placed to the admitted physician, Dr. Simmons who graciously accepted the patient onto their service. *Note is created using voice recognition software and may contain spelling, syntax or grammatical errors. Laboratory 12/04/18 12/04/18 12/04/18 14:10 14:10 14:10 WBC 21.2 H RBC 2.19 L Hgb 6.4 L D Hct 19.2 L MCV 88 MCH 29.1 MCHC 33.2 RDW 15.1 H Plt Count 217 Total Counted 100 Seg Neutrophils % Not Reportable Seg Neuts % (Manual) 49 Lymphocytes % Not Reportable Lymphocytes % (Manual) 43 Atypical Lymphs % 2 Monocytes % Not Reportable Monocytes % (Manual) 5 Eosinophils % Not Reportable Eosinophils % (Manual) 1 Basophils % Not Reportable Basophils % (Manual) 0 Absolute Neutrophils Not Reportable Abs Neuts (Manual) 10.4 H Absolute Lymphocytes Not Reportable Abs Lymphs (Manual) 9.5 H Absolute Monocytes Not Reportable Abs Monocytes (Manual) 1.1 Absolute Eosinophils Not Reportable Absolute Eos (Manual) 0.2 Absolute Basophils Not Reportable Abs Basophils (Manual) 0.0 Nucleated RBCs 1 Toxic Granulation SLIGHT Platelet Comment ADEQUATE Polychromasia 1+ Anisocytosis 1+ Sodium 139.3 Potassium 4.0 Chloride 108 H Carbon Dioxide 25 Anion Gap 6 BUN 26 H Creatinine 0.87 Est GFR ( Amer) > 60 Est GFR (Non-Af Amer) > 60 Glucose 130 H Calcium 8.0 L Total Bilirubin 0.3 Direct Bilirubin 0.2 Neonat Total Bilirubin Not Reportable Neonat Direct Bilirubin Not Reportable Neonat Indirect Bili Not Reportable AST 17 ALT 28 Alkaline Phosphatase 44 Creatine Kinase 47 L CK-MB (CK-2) Cancelled Troponin I < 0.012 Total Protein 4.7 L Albumin 2.8 L Urine Color Urine Appearance Urine pH Ur Specific [place] Urine Protein Urine Glucose (UA) Urine Ketones Urine Blood Urine Nitrite Urine Bilirubin Urine Urobilinogen Ur Leukocyte Esterase Urine WBC (Auto) Urine RBC (Auto) Squamous Epi Cells Auto Urine Mucus (Auto) Urine Ascorbic Acid Blood Type Antibody Screen Crossmatch 12/04/18 12/04/18 14:10 14:57 WBC RBC Hgb Hct MCV MCH MCHC RDW Plt Count Total Counted Seg Neutrophils % Seg Neuts % (Manual) Lymphocytes % Lymphocytes % (Manual) Atypical Lymphs % Monocytes % Monocytes % (Manual) Eosinophils % Eosinophils % (Manual) Basophils % Basophils % (Manual) Absolute Neutrophils Abs Neuts (Manual) Absolute Lymphocytes Abs Lymphs (Manual) Absolute Monocytes Abs Monocytes (Manual) Absolute Eosinophils Absolute Eos (Manual) Absolute Basophils Abs Basophils (Manual) Nucleated RBCs Toxic Granulation Platelet Comment Polychromasia Anisocytosis Sodium Potassium Chloride Carbon Dioxide Anion Gap BUN Creatinine Est GFR ( Amer) Est GFR (Non-Af Amer) Glucose Calcium Total Bilirubin Direct Bilirubin Neonat Total Bilirubin Neonat Direct Bilirubin Neonat Indirect Bili AST ALT Alkaline Phosphatase Creatine Kinase CK-MB (CK-2) Troponin I Total Protein Albumin Urine Color YELLOW Urine Appearance CLEAR Urine pH 5.0 Ur Specific [place] 1.020 Urine Protein NEGATIVE Urine Glucose (UA) NEGATIVE Urine Ketones NEGATIVE Urine Blood NEGATIVE Urine Nitrite NEGATIVE Urine Bilirubin NEGATIVE Urine Urobilinogen NEGATIVE Ur Leukocyte Esterase NEGATIVE Urine WBC (Auto) 2 Urine RBC (Auto) 1 Squamous Epi Cells Auto <1 Urine Mucus (Auto) OCC Urine Ascorbic Acid NEGATIVE Blood Type O POSITIVE Antibody Screen NEGATIVE Crossmatch See Detail Chest X-Ray 12/04/18 00:00 IMPRESSION: NG tube tip overlies the cardiac portion of the stomach. - Vital Signs Vital signs: Temp Pulse Resp BP Pulse Ox 99.4 F 108 H 20 132/85 H 98 12/04/18 20:32 12/04/18 19:30 12/04/18 21:01 12/04/18 21:01 12/04/18 21:01 - Laboratory Result Diagrams: 12/04/18 14:10 12/04/18 14:10 Laboratory results interpreted by me: 12/04/18 12/04/18 12/04/18 14:10 14:10 14:10 WBC 21.2 H RBC 2.19 L Hgb 6.4 L D Hct 19.2 L RDW 15.1 H Abs Neuts (Manual) 10.4 H Abs Lymphs (Manual) 9.5 H Chloride 108 H BUN 26 H Glucose 130 H Calcium 8.0 L Creatine Kinase 47 L Total Protein 4.7 L Albumin 2.8 L Crossmatch See Detail - EKG Interpretation by Me Additional EKG results interpreted by me: EKG demonstrates sinus tachycardia with a ventricular rate of 109 bpm, normal axis, normal intervals, no evidence of acute ischemia in this EKG, no prior for comparison. Critical Care Note - Critical Care Note Total time excluding time spent on procedures (mins): 35 Comments: Critical care time 35 minutes exclusive from separate billable procedures for a patient requiring complex medical decision making, and high potential for clinical deterioration. In a patient with acute blood loss anemia, with hemodynamic changes with tachycardia, and symptomatic lightheadedness, requiring blood transfusion, consultation with surgery and the hospitalist team and admission to the hospital. Time spent obtaining history from patient or surrogate, discussions with consultants, development of treatment plan with patient or surrogate, evaluation of patient's response to treatment, examination of patient, ordering and performing treatments and interventions, ordering and review of laboratory studies, re-evaluation of patient's condition, ordering and review of radiographic studies and review of old charts Discharge - Discharge Clinical Impression: Acute blood loss anemia/ upper GI bleed, Prerenal azotemia, Near syncope Condition: Stable Disposition: ADMITTED INPATIENT Admitting Provider: Iris (Hospitalist) Unit Admitted: [facility]
[2018-12-04] MEDS ORDERED: NORMAL SALINE 250 ML IV PRN ×5 (14:13→18:25)
[2018-12-04] MEDS ORDERED: RINGERS SOLUTION,LACTATED 1,000 ML IV ONE (14:14)
[2018-12-04] MEDS ORDERED: PANTOPRAZOLE SODIUM 40 MG VIAL IV PRN (14:15)
[2018-12-04] MEDS ORDERED: PANTOPRAZOLE SODIUM 40 MG VIAL IV ONE (14:15)
[2018-12-04 14:42] LABS: ALANINE AMINOTRANSFERASE 28 U/L (21-72); ALBUMIN 2.8 g/dL (3.5-5.0); ALKALINE PHOSPHATASE 44 U/L (38-126); ANION GAP 6 (5-19); ASPARTATE AMINO TRANSFERASE 17 U/L (17-59); BILIRUBIN,DIRECT 0.2 mg/dL (0.0-0.4); BILIRUBIN,TOTAL 0.3 mg/dL (0.2-1.3); BLOOD UREA NITROGEN 26 mg/dL (7-20); CARBON DIOXIDE 25 mmol/L (22-30); CHLORIDE 108 mmol/L (98-107); CREATINE KINASE 47 U/L (55-170); GLUCOSE 130 mg/dL (75-110); SODIUM 139.3 mmol/L (137-145); TOTAL PROTEIN 4.7 g/dL (6.3-8.2)
[2018-12-04 14:47] LABS: HEMATOCRIT 19.2 % (37.9-51.0); MEAN CORPUSCULAR HEMOGLOBIN 29.1 pg (27.0-33.4); MEAN CORPUSCULAR HGB CONC 33.2 g/dL (32.0-36.0); MEAN CORPUSCULAR VOLUME 88 fl (80-97); PLATELET COUNT 217 10^3/uL (150-450); RED BLOOD COUNT 2.19 10^6/uL (4.35-5.55); RED CELL DISTRIBUTION WIDTH 15.1 % (11.5-14.0); WHITE BLOOD COUNT 21.2 10^3/uL (4.0-10.5)
[2018-12-04 15:09] LABS: HEMOGLOBIN 6.4 g/dL (13.5-17.0)
[2018-12-04 15:09] LABS: APPEARANCE,URINE CLEAR; BILIRUBIN,URINE NEGATIVE (NEGATIVE); COLOR,URINE YELLOW; GLUCOSE, URINE NEGATIVE (NEGATIVE); KETONES,URINE NEGATIVE (NEGATIVE); LEUKOCYTE ESTERASE,URINE NEGATIVE (NEGATIVE); NITRITE,URINE NEGATIVE (NEGATIVE); PROTEIN,URINE NEGATIVE (NEGATIVE); UROBILINOGEN,URINE NEGATIVE mg/dL (<2.0)
[2018-12-04 15:17] LABS: ABSOLUTE LYMPHOCYTES# (MANUAL) 9.5 10^3/uL (0.5-4.7); ABSOLUTE MONOCYTES # (MANUAL) 1.1 10^3/uL (0.1-1.4); ABSOLUTE NEUTROPHILS# (MANUAL) 10.4 10^3/uL (1.7-8.2); BASOPHILS % (MANUAL) 0 % (0-2); EOSINOPHILS % (MANUAL) 1 % (0-6); LYMPHOCYTES % (MANUAL) 43 % (13-45); MONOCYTES % (MANUAL) 5 % (3-13); NUCLEATED RED BLOOD CELLS 1 /100 WBC (0); SEGMENTED NEUTROPHILS % (MAN) 49 % (42-78); TOTAL CELLS COUNTED 100; TOXIC GRANULATION SLIGHT
[2018-12-04 15:18] LABS: ANISOCYTOSIS 1+; POLYCHROMASIA 1+
[2018-12-04 15:19] LABS: PLATELET COMMENT ADEQUATE
[2018-12-04] MEDS ORDERED: NORMAL SALINE 1000 ML 1,000 ML IV PRN (16:39)
[2018-12-04] MEDS ORDERED: PANTOPRAZOLE SODIUM 40 MG VIAL IV SCH (16:45)
--- NOTE | 2018-12-04 17:00 | PDOC H&P ---
History of Present Illness Admission Date/PCP: DANIELLA BARRETT MD Patient complains of: dizziness History of Present Illness: FAROOQ LEVI is a 58 year old male with a past medical history of hyperlipidemia, hypertension, prior laparoscopic Liz fundoplication 2004 for severe GERD who came in today due to dizziness. Patient was just recently admitted and discharged yesterday after he recently presented with hematemesis and melena. He was given IV fluids and blood transfusion. Patient did undergo EGD on 11/29/2018 by surgery which showed a questionable/possible hemorrhagic gastritis versus an ulcer in the Niesen wrap. He was discharged yesterday with a hemoglobin of 9.0. He says he did not have any bowel movement since discharge nor any recurrence of hematemesis since discharge. However this afternoon, he felt he was generally weak and went to the bathroom and felt very dizzy hence came back to the ER where his hemoglobin was lower at 6.4 from 9.0 from yesterday. 3 units of packed RBC has been ordered in the ER. His blood pressure is running in the 130 over 80s. He is slightly tachycardic in the 110. Evaluated patient with surgery on bedside who has recommended placing an NG and possibly rescoping the patient. He says he was on meloxicam and doxycycline more than a week ago but only took 1 to 2 pills of meloxicam. His says that he has been off the doxycycline (prescribed by PCP for Rosacea) for more than a week now. Past Medical History Cardiac Medical History: Reports: Hyperlipidema, Hypertension Denies: Atrial Fibrillation, Congestive Heart Failure, Coronary Artery Disease, Myocardial Infarction, Peripheral Vascular Disease, Pulmonary Embolism, Heart Murmur Pulmonary Medical History: Denies: Asthma, Bronchitis, Chronic Obstructive Pulmonary Disease (COPD), Pneumonia, Respiratory Failure, Sleep Apnea, Tuberculosis Neurological Medical History: Denies: Seizures Endocrine Medical History: Denies: Diabetes Mellitus Type 1, Diabetes Mellitus Type 2, Hyperthyroidism, Hypothyroidism Renal/ Medical History: Denies: End Stage Renal Disease Malignancy Medical History: Denies: Breast Cancer, Cervical Cancer, Leukemia, Lung Cancer, Ovarian Cancer GI Medical History: Reports: Hiatal Hernia Denies: Cirrhosis, Crohn's Disease, Diverticulitis, Gastroesophageal Reflux Disease, Hepatitis, Ulcerative Colitis Musculoskeltal Medical History: Denies: Arthritis, Fibromyalgia Skin Medical History: Denies: Eczema, Psoriasis Psychiatric Medical History: Denies: Bipolar Disorder, Dementia, Depression, Post Traumatic Stress Disorder Hematology: Denies: Anemia, Hemophilia, Sickle Cell Disease, Bleeding Tendencies Infectious Medical History: Denies: HIV Past Surgical History Past Surgical History: Reports: Cholecystectomy, Orthopedic Surgery - Bilateral knee replacements, Tonsillectomy, Other - Umang fundoplication, parathyroidectomy Denies: Appendectomy, Colostomy, Coronary Artery Bypass Graft, Gastric Bypass Surgery, Herniorrhaphy, Pacemaker Social History Smoking Status: Never Smoker Frequency of Alcohol Use: Occasional Hx Recreational Drug Use: No Drugs: None Hx Prescription Drug Abuse: No Family History Family History: Reviewed & Not Pertinent Parental Family History Reviewed: Yes - No premature CAD Children Family History Reviewed: No Sibling(s) Family History Reviewed.: No Medication/Allergy Home Medications: Atorvastatin Calcium [Lipitor 20 mg Tablet] 20 mg PO QHS 12/04/18 Cyclobenzaprine HCl [Flexeril 10 mg Tablet] 10 mg PO DAILYP PRN 12/04/18 Doxycycline Hyclate [Vibramycin 100 mg Tablet] 100 mg PO DAILY 12/04/18 Ferrous Sulfate [Feosol 325 mg Tablet] 325 mg PO BID 12/04/18 Hydrochlorothiazide [Hydrodiuril 25 mg Tablet] 25 mg PO DAILY 12/04/18 Meloxicam [Mobic] 15 mg PO DAILYP PRN 12/04/18 Metoprolol Succinate [Toprol Xl 50 mg Tab.sr] 50 mg PO DAILY 12/04/18 Pantoprazole Sodium [Protonix [address] Tablet] 40 mg PO DAILY 12/04/18 Allergies/Adverse Reactions: No Known Allergies Allergy (Unverified 02/04/12 19:25) Review of Systems All systems: reviewed and no additional remarkable complaints except as stated - As mentioned in HPI Physical Exam Vital Signs: Temp Pulse Resp BP Pulse Ox 98.2 F 15 126/79 H 100 12/04/18 13:31 12/04/18 15:01 12/04/18 15:01 12/04/18 15:01 Intake & Output 12/03/18 12/04/18 12/05/18 06:59 06:59 06:59 Weight 249 lb 1.957 oz General appearance: PRESENT: no acute distress, well-developed, well-nourished Head exam: PRESENT: atraumatic, normocephalic Eye exam: PRESENT: conjunctiva pale, EOMI, PERRLA. ABSENT: scleral icterus Ear exam: PRESENT: normal external ear exam Mouth exam: PRESENT: moist, tongue midline Neck exam: ABSENT: carotid bruit, JVD, lymphadenopathy, thyromegaly Respiratory exam: PRESENT: clear to auscultation mulugeta. ABSENT: rales, rhonchi, wheezes Cardiovascular exam: PRESENT: RRR. ABSENT: diastolic murmur, rubs, systolic murmur Pulses: PRESENT: normal dorsalis pedis pul GI/Abdominal exam: PRESENT: normal bowel sounds, soft. ABSENT: distended, guarding, mass, organolmegaly, rebound, tenderness Rectal exam: PRESENT: deferred Neurological exam: PRESENT: alert, awake, oriented to person, oriented to place, oriented to time, oriented to situation, CN II-XII grossly intact. ABSENT: motor sensory deficit Results Laboratory Results: 12/04/18 14:10 12/04/18 14:10 12/04/18 12/04/18 12/04/18 14:10 14:10 14:10 WBC 21.2 H RBC 2.19 L Hgb 6.4 L D Hct 19.2 L MCV 88 MCH 29.1 MCHC 33.2 RDW 15.1 H Plt Count 217 Seg Neutrophils % Not Reportable Lymphocytes % Not Reportable Monocytes % Not Reportable Eosinophils % Not Reportable Basophils % Not Reportable Absolute Neutrophils Not Reportable Absolute Lymphocytes Not Reportable Absolute Monocytes Not Reportable Absolute Eosinophils Not Reportable Absolute Basophils Not Reportable Sodium 139.3 Potassium 4.0 Chloride 108 H Carbon Dioxide 25 Anion Gap 6 BUN 26 H Creatinine 0.87 Est GFR ( Amer) > 60 Est GFR (Non-Af Amer) > 60 Glucose 130 H Calcium 8.0 L Total Bilirubin 0.3 AST 17 ALT 28 Alkaline Phosphatase 44 Total Protein 4.7 L Albumin 2.8 L Urine Color Urine Appearance Urine pH Ur Specific [place] Urine Protein Urine Glucose (UA) Urine Ketones Urine Blood Urine Nitrite Ur Leukocyte Esterase Urine WBC (Auto) Urine RBC (Auto) Blood Type O POSITIVE Antibody Screen NEGATIVE 12/04/18 14:57 WBC RBC Hgb Hct MCV MCH MCHC RDW Plt Count Seg Neutrophils % Lymphocytes % Monocytes % Eosinophils % Basophils % Absolute Neutrophils Absolute Lymphocytes Absolute Monocytes Absolute Eosinophils Absolute Basophils Sodium Potassium Chloride Carbon Dioxide Anion Gap BUN Creatinine Est GFR ( Amer) Est GFR (Non-Af Amer) Glucose Calcium Total Bilirubin AST ALT Alkaline Phosphatase Total Protein Albumin Urine Color YELLOW Urine Appearance CLEAR Urine pH 5.0 Ur Specific [place] 1.020 Urine Protein NEGATIVE Urine Glucose (UA) NEGATIVE Urine Ketones NEGATIVE Urine Blood NEGATIVE Urine Nitrite NEGATIVE Ur Leukocyte Esterase NEGATIVE Urine WBC (Auto) 2 Urine RBC (Auto) 1 Blood Type Antibody Screen 12/04/18 12/04/18 14:10 14:10 Creatine Kinase 47 L CK-MB (CK-2) Cancelled Troponin I < 0.012 Assessment and Plan - Diagnosis (1) Gastrointestinal bleeding, upper Is this a current diagnosis for this admission?: Yes Plan: Continue Protonix drip. 3 units of packed RBC have been ordered in the ER. We will continue to cycle H&H. Evaluated patient with surgery recommended placing an NG and possible repeat endoscopy. Noted biopsy results from recent EGD. (2) Acute blood loss anemia Is this a current diagnosis for this admission?: Yes Plan: Blood transfusion as mentioned above. Continue to cycle H&H. (3) HTN (hypertension) Qualifiers: Hypertension type: essential hypertension Qualified Code(s): I10 - Essential (primary) hypertension Is this a current diagnosis for this admission?: Yes Plan: Hold antihypertensives for now. (4) Leukocytosis Is this a current diagnosis for this admission?: Yes Plan: He was recently evaluated by hematology. Possibly reactive as the WBC did significantly went down on. Hematology did recommend resuming a flow cytometry to rule out CLL on outpatient basis. - Time Time Spent with patient: 25-34 minutes
--- NOTE | 2018-12-04 17:01 | ADVANCED CARE ---
- Diagnosis (1) Acute blood loss anemia/ upper GI bleed Diagnosis Current: Yes (2) Gastrointestinal bleeding, upper Diagnosis Current: Yes (3) HTN (hypertension) Diagnosis Current: Yes Resuscitation Status: Full Code Discussion: Discussed advanced directives with patient and on bedside. He says he is a full code and prefers chest compressions, defibrillation and mechanical ventilation if the need arises. His is his surrogate medical decision maker.
--- NOTE | 2018-12-04 17:28 | EKG REPORT ---
SEVERITY:- BORDERLINE ECG - SINUS TACHYCARDIA BORDERLINE T ABNORMALITIES, DIFFUSE LEADS : Confirmed by: Elkin Lomas MD 04-Dec-2018 17:27:41
--- NOTE | 2018-12-04 17:58 | RADIOLOGY REPORT (SQ) ---
EXAM DESCRIPTION: CHEST SINGLE VIEW COMPLETED DATE/TIME: 12/04/2018 5:41 pm REASON FOR STUDY: NG placement verification COMPARISON: 02/04/2012 TECHNIQUE: Single frontal radiographic view of the chest acquired. NUMBER OF VIEWS: One view. LIMITATIONS: Field of view is lower lungs and upper abdomen. FINDINGS: LUNGS AND PLEURA: No pneumothorax. No consolidation or pleural effusion. MEDIASTINUM AND HILAR STRUCTURES: Stable. HEART AND VASCULAR STRUCTURES: Stable. BONES: No acute findings. HARDWARE: NG tube tip overlies the cardiac portion of the stomach. OTHER: No other significant finding. IMPRESSION: NG tube tip overlies the cardiac portion of the stomach. TECHNICAL DOCUMENTATION: JOB ID: [id number] [employer]- All Rights Reserved Reading location - IP/workstation name: [email or web address]
--- NOTE | 2018-12-04 18:13 | PDOC CONSULTATION ---
Consultation Consult Date: 12/04/18 Provider Consulted: MATTEO BARROSO History of Present Illness Admission Date/PCP: 12/04/18 16:25 DANIELLA BARRETT MD History of Present Illness: FAROOQ LEVI is a 58 year old male with a past medical history of hyperlipidemia, hypertension, prior laparoscopic Liz fundoplication 2004 for severe GERD who came in today due to dizziness. Patient was just recently admitted and discharged yesterday after he recently presented with hematemesis and melena. He was given IV fluids and blood transfusion. Patient did undergo EGD on 11/29/2018 by surgery which showed a questionable/possible hemorrhagic gastritis versus an ulcer in the Niesen wrap. He was discharged yesterday with a hemoglobin of 9.0. He says he did not have any bowel movement since discharge nor any recurrence of hematemesis since discharge. However this afternoon, he felt he was generally weak and went to the bathroom and felt very dizzy hence came back to the ER where his hemoglobin was lower at 6.4 from 9.0 from yesterday. 3 units of packed RBC has been ordered in the ER. His blood pressure is running in the 130 over 80s. He is slightly tachycardic in the 110. who has recommended placing an NG and . ng tube placed in er does not show any significant blood Past Medical History Cardiac Medical History: Reports: Hyperlipidema, Hypertension Denies: Atrial Fibrillation, Congestive Heart Failure, Coronary Artery Disease, Myocardial Infarction, Peripheral Vascular Disease, Pulmonary Embolism, Heart Murmur Pulmonary Medical History: Denies: Asthma, Bronchitis, Chronic Obstructive Pulmonary Disease (COPD), Pneumonia, Respiratory Failure, Sleep Apnea, Tuberculosis Neurological Medical History: Denies: Seizures Endocrine Medical History: Denies: Diabetes Mellitus Type 1, Diabetes Mellitus Type 2, Hyperthyroidism, Hypothyroidism Renal/ Medical History: Denies: End Stage Renal Disease Malignancy Medical History: Denies: Breast Cancer, Cervical Cancer, Leukemia, Lung Cancer, Ovarian Cancer GI Medical History: Reports: Hiatal Hernia Denies: Cirrhosis, Crohn's Disease, Diverticulitis, Gastroesophageal Reflux Disease, Hepatitis, Ulcerative Colitis Musculoskeltal Medical History: Denies: Arthritis, Fibromyalgia Skin Medical History: Denies: Eczema, Psoriasis Psychiatric Medical History: Denies: Bipolar Disorder, Dementia, Depression, Post Traumatic Stress Disorder Hematology: Denies: Anemia, Hemophilia, Sickle Cell Disease, Bleeding Tendencies Infectious Medical History: Denies: HIV Past Surgical History Past Surgical History: Reports: Cholecystectomy, Orthopedic Surgery - Bilateral knee replacements, Tonsillectomy Denies: Appendectomy, Colostomy, Coronary Artery Bypass Graft, Gastric Bypass Surgery, Herniorrhaphy, Pacemaker Social History Smoking Status: Never Smoker Frequency of Alcohol Use: Occasional Hx Recreational Drug Use: No Drugs: None Hx Prescription Drug Abuse: No - Advance Directive Resuscitation Status: Full Code Family History Family History: Reviewed & Not Pertinent Parental Family History Reviewed: No Children Family History Reviewed: NA Sibling(s) Family History Reviewed.: NA Medication/Allergy Home Medications: Atorvastatin Calcium [Lipitor 20 mg Tablet] 20 mg PO QHS 12/04/18 Cyclobenzaprine HCl [Flexeril 10 mg Tablet] 10 mg PO DAILYP PRN 12/04/18 Doxycycline Hyclate [Vibramycin 100 mg Tablet] 100 mg PO DAILY 12/04/18 Ferrous Sulfate [Feosol 325 mg Tablet] 325 mg PO BID 12/04/18 Hydrochlorothiazide [Hydrodiuril 25 mg Tablet] 25 mg PO DAILY 12/04/18 Meloxicam [Mobic] 15 mg PO DAILYP PRN 12/04/18 Metoprolol Succinate [Toprol Xl 50 mg Tab.sr] 50 mg PO DAILY 12/04/18 Pantoprazole Sodium [Protonix [address] Tablet] 40 mg PO DAILY 12/04/18 Allergies/Adverse Reactions: No Known Allergies Allergy (Unverified 02/04/12 19:25) Review of Systems Constitutional: PRESENT: weakness Eyes: ABSENT: visual disturbances Ears: ABSENT: hearing changes Nose, Mouth, and Throat: PRESENT: sore throat Cardiovascular: ABSENT: as per HPI, chest pain, dyspnea on exertion, edema, orthropnea, palpitations, other Gastrointestinal: PRESENT: coffee ground emesis, heartburn, hematemesis, hematochezia Genitourinary: ABSENT: dysuria, hematuria Musculoskeletal: ABSENT: joint swelling Neurological: ABSENT: abnormal gait, abnormal speech, confusion, dizziness, focal weakness, syncope Psychiatric: ABSENT: anxiety, depression, homidical ideation, suicidal ideation Endocrine: ABSENT: cold intolerance, heat intolerance, polydipsia, polyuria Hematologic/Lymphatic: ABSENT: easy bleeding, easy bruising Physical Exam Vital Signs: Temp Pulse Resp BP Pulse Ox 98.8 F 118 H 16 129/83 H 100 12/04/18 16:37 12/04/18 16:37 12/04/18 16:37 12/04/18 16:37 12/04/18 16:37 Intake & Output 12/03/18 12/04/18 12/05/18 06:59 06:59 06:59 Intake Total 0 Balance 0 Weight 113 kg General appearance: PRESENT: mild distress Head exam: PRESENT: normocephalic Eye exam: PRESENT: EOMI Ear exam: PRESENT: normal external ear exam Mouth exam: PRESENT: dry mucosa, moist Neck exam: PRESENT: full ROM Respiratory exam: PRESENT: clear to auscultation mulugeta Cardiovascular exam: PRESENT: RRR GI/Abdominal exam: PRESENT: soft Rectal exam: PRESENT: deferred Extremities exam: PRESENT: full ROM Musculoskeletal exam: PRESENT: full ROM Neurological exam: PRESENT: alert, awake, oriented to person, oriented to place, oriented to time, oriented to situation Psychiatric exam: PRESENT: appropriate affect Skin exam: PRESENT: dry Results Laboratory Results: 12/04/18 14:10 12/04/18 14:10 12/04/18 12/04/18 12/04/18 14:10 14:10 14:10 WBC 21.2 H RBC 2.19 L Hgb 6.4 L D Hct 19.2 L MCV 88 MCH 29.1 MCHC 33.2 RDW 15.1 H Plt Count 217 Seg Neutrophils % Not Reportable Lymphocytes % Not Reportable Monocytes % Not Reportable Eosinophils % Not Reportable Basophils % Not Reportable Absolute Neutrophils Not Reportable Absolute Lymphocytes Not Reportable Absolute Monocytes Not Reportable Absolute Eosinophils Not Reportable Absolute Basophils Not Reportable Sodium 139.3 Potassium 4.0 Chloride 108 H Carbon Dioxide 25 Anion Gap 6 BUN 26 H Creatinine 0.87 Est GFR ( Amer) > 60 Est GFR (Non-Af Amer) > 60 Glucose 130 H Calcium 8.0 L Total Bilirubin 0.3 AST 17 ALT 28 Alkaline Phosphatase 44 Total Protein 4.7 L Albumin 2.8 L Urine Color Urine Appearance Urine pH Ur Specific [place] Urine Protein Urine Glucose (UA) Urine Ketones Urine Blood Urine Nitrite Ur Leukocyte Esterase Urine WBC (Auto) Urine RBC (Auto) Blood Type O POSITIVE Antibody Screen NEGATIVE 12/04/18 14:57 WBC RBC Hgb Hct MCV MCH MCHC RDW Plt Count Seg Neutrophils % Lymphocytes % Monocytes % Eosinophils % Basophils % Absolute Neutrophils Absolute Lymphocytes Absolute Monocytes Absolute Eosinophils Absolute Basophils Sodium Potassium Chloride Carbon Dioxide Anion Gap BUN Creatinine Est GFR ( Amer) Est GFR (Non-Af Amer) Glucose Calcium Total Bilirubin AST ALT Alkaline Phosphatase Total Protein Albumin Urine Color YELLOW Urine Appearance CLEAR Urine pH 5.0 Ur Specific [place] 1.020 Urine Protein NEGATIVE Urine Glucose (UA) NEGATIVE Urine Ketones NEGATIVE Urine Blood NEGATIVE Urine Nitrite NEGATIVE Ur Leukocyte Esterase NEGATIVE Urine WBC (Auto) 2 Urine RBC (Auto) 1 Blood Type Antibody Screen 12/04/18 12/04/18 14:10 14:10 Creatine Kinase 47 L CK-MB (CK-2) Cancelled Troponin I < 0.012 Impressions: Chest X-Ray 12/04/18 00:00 IMPRESSION: NG tube tip overlies the cardiac portion of the stomach. Assessment & Plan - Plan Summary Plan Summary: impressio hx of upper gi bleed question of proximal gastric ulcer or poss prox gastric neoplasm recommend admit to icu transfuse to hct of 30 cont ng suctiion will follow will need rescope when stable.
[2018-12-04] MEDS ORDERED: FUROSEMIDE INJ/PF 20 MG/2 ML SDV IV ONE (18:26)
[2018-12-04] MEDS ORDERED: FUROSEMIDE INJ/PF 20 MG/2 ML SDV ONE (19:48)
[2018-12-04 22:18] LABS: HEMATOCRIT 25.1 % (37.9-51.0); HEMOGLOBIN 8.3 g/dL (13.5-17.0); MEAN CORPUSCULAR HEMOGLOBIN 29.3 pg (27.0-33.4); MEAN CORPUSCULAR HGB CONC 32.9 g/dL (32.0-36.0); MEAN CORPUSCULAR VOLUME 89 fl (80-97); PLATELET COUNT 234 10^3/uL (150-450); RED BLOOD COUNT 2.82 10^6/uL (4.35-5.55); RED CELL DISTRIBUTION WIDTH 14.8 % (11.5-14.0)
[2018-12-04 22:31] LABS: WHITE BLOOD COUNT 30.9 10^3/uL (4.0-10.5)
[2018-12-04 22:41] LABS: ABSOLUTE LYMPHOCYTES# (MANUAL) 19.8 10^3/uL (0.5-4.7); ABSOLUTE MONOCYTES # (MANUAL) 0.6 10^3/uL (0.1-1.4); ABSOLUTE NEUTROPHILS# (MANUAL) 10.2 10^3/uL (1.7-8.2); BASOPHILS % (MANUAL) 0 % (0-2); EOSINOPHILS % (MANUAL) 1 % (0-6); LYMPHOCYTES % (MANUAL) 64 % (13-45); MONOCYTES % (MANUAL) 2 % (3-13); SEGMENTED NEUTROPHILS % (MAN) 33 % (42-78); TOTAL CELLS COUNTED 100
[2018-12-04 22:44] LABS: ANISOCYTOSIS SLIGHT; PLATELET COMMENT ADEQUATE; POIKILOCYTOSIS SLIGHT; POLYCHROMASIA SLIGHT; STOMATOCYTES 1+; TOXIC GRANULATION SLIGHT
[2018-12-05] MEDS ORDERED: NORMAL SALINE 100 ML with PANTOPRAZOLE SODIUM 80 MG IV PRN ×2 (05:20)
[2018-12-05] MEDS: PANTOPRAZOLE SODIUM 40 MG VIAL IV ONE ×2 (05:47→06:16)
[2018-12-05 09:24] LABS: HEMATOCRIT 24.3 % (37.9-51.0); MEAN CORPUSCULAR HEMOGLOBIN 28.6 pg (27.0-33.4); MEAN CORPUSCULAR HGB CONC 32.7 g/dL (32.0-36.0); MEAN CORPUSCULAR VOLUME 88 fl (80-97); PLATELET COUNT 243 10^3/uL (150-450); RED BLOOD COUNT 2.78 10^6/uL (4.35-5.55); RED CELL DISTRIBUTION WIDTH 14.7 % (11.5-14.0); WHITE BLOOD COUNT 27.9 10^3/uL (4.0-10.5)
[2018-12-05 09:41] LABS: ANION GAP 5 (5-19); BLOOD UREA NITROGEN 34 mg/dL (7-20); CALCIUM 7.9 mg/dL (8.4-10.2); CARBON DIOXIDE 25 mmol/L (22-30); CHLORIDE 109 mmol/L (98-107); GLUCOSE 124 mg/dL (75-110); POTASSIUM 4.4 mmol/L (3.6-5.0); SODIUM 138.8 mmol/L (137-145)
[2018-12-05] MEDS ORDERED: NORMAL SALINE 1000 ML 1,000 ML IV PRN (09:41)
[2018-12-05] MEDS ORDERED: NORMAL SALINE 250 ML IV PRN ×2 (09:42)
[2018-12-05 09:58] LABS: ABSOLUTE LYMPHOCYTES# (MANUAL) 7.3 10^3/uL (0.5-4.7); ABSOLUTE MONOCYTES # (MANUAL) 0.8 10^3/uL (0.1-1.4); ABSOLUTE NEUTROPHILS# (MANUAL) 18.7 10^3/uL (1.7-8.2); BASOPHILS % (MANUAL) 1 % (0-2); EOSINOPHILS % (MANUAL) 3 % (0-6); LYMPHOCYTES % (MANUAL) 26 % (13-45); MONOCYTES % (MANUAL) 3 % (3-13); SEGMENTED NEUTROPHILS % (MAN) 67 % (42-78); TOTAL CELLS COUNTED 100
[2018-12-05 10:03] LABS: ANISOCYTOSIS SLIGHT; OVALOCYTES SLIGHT; PLATELET COMMENT ADEQUATE; POIKILOCYTOSIS SLIGHT; POLYCHROMASIA 1+; SMUDGE CELLS PRESENT; TOXIC GRANULATION SLIGHT
--- NOTE | 2018-12-05 11:00 | PDOC PROGRESS REPORT ---
Subjective Progress Note for:: 12/05/18 Subjective:: This is 58 years old male patient was past medical history of hypertension, hyperlipidemia upper GI bleeding and obesity presented with chief complaint of progressive weakness and lightheadedness to the extent of near blacked out. Patient is known to me from his recent admission to this hospital for the same complaint. During his previous admission patient admitted for upper GI bleeding with severe acute blood loss anemia for which she transfused 3 units of packed RBC. His EGD did not identify bleeding point the assumption is he might have bleeding from Liz fundoplication area. I discharged him 2 days ago with hemoglobin of 9. Yesterday his hemoglobin was 6.4 today after 2 units of packed RBC his hemoglobin increased to 8.3. Dr. Cooper has been consulted and he will be scheduled him for repeat EGD. Reason For Visit: GI BLEED,BLOOD LOSS ANEMIA Physical Exam Vital Signs: Temp Pulse Resp BP Pulse Ox 99.2 F 103 H 20 135/79 H 98 12/05/18 10:38 12/05/18 10:38 12/05/18 10:38 12/05/18 10:38 12/05/18 10:38 Intake & Output 12/04/18 12/05/18 12/06/18 06:59 06:59 06:59 Intake Total 2150 0 Output Total 175 Balance 1975 0 Weight 109.2 kg General appearance: PRESENT: no acute distress Eye exam: PRESENT: conjunctiva pale - Mild pallor Mouth exam: PRESENT: dry mucosa Neck exam: ABSENT: carotid bruit, JVD, lymphadenopathy, thyromegaly Respiratory exam: PRESENT: clear to auscultation mulugeta. ABSENT: rales, rhonchi, wheezes Cardiovascular exam: PRESENT: RRR. ABSENT: diastolic murmur, rubs, systolic murmur GI/Abdominal exam: PRESENT: normal bowel sounds, soft. ABSENT: distended, guarding, mass, organolmegaly, rebound, tenderness Neurological exam: PRESENT: alert, awake, oriented to person, oriented to place, oriented to time, oriented to situation Results Laboratory Results: 12/05/18 09:03 12/05/18 09:03 12/04/18 12/04/18 12/04/18 14:10 14:10 14:10 WBC 21.2 H RBC 2.19 L Hgb 6.4 L D Hct 19.2 L MCV 88 MCH 29.1 MCHC 33.2 RDW 15.1 H Plt Count 217 Seg Neutrophils % Not Reportable Lymphocytes % Not Reportable Monocytes % Not Reportable Eosinophils % Not Reportable Basophils % Not Reportable Absolute Neutrophils Not Reportable Absolute Lymphocytes Not Reportable Absolute Monocytes Not Reportable Absolute Eosinophils Not Reportable Absolute Basophils Not Reportable Sodium 139.3 Potassium 4.0 Chloride 108 H Carbon Dioxide 25 Anion Gap 6 BUN 26 H Creatinine 0.87 Est GFR ( Amer) > 60 Est GFR (Non-Af Amer) > 60 Glucose 130 H Calcium 8.0 L Total Bilirubin 0.3 AST 17 ALT 28 Alkaline Phosphatase 44 Total Protein 4.7 L Albumin 2.8 L Urine Color Urine Appearance Urine pH Ur Specific [place] Urine Protein Urine Glucose (UA) Urine Ketones Urine Blood Urine Nitrite Ur Leukocyte Esterase Urine WBC (Auto) Urine RBC (Auto) Blood Type O POSITIVE Antibody Screen NEGATIVE 12/04/18 12/04/18 12/05/18 14:57 22:10 09:03 WBC 30.9 H* 27.9 H RBC 2.82 L 2.78 L Hgb 8.3 L 8.0 L Hct 25.1 L 24.3 L MCV 89 88 MCH 29.3 28.6 MCHC 32.9 32.7 RDW 14.8 H 14.7 H Plt Count 234 243 Seg Neutrophils % Not Reportable Not Reportable Lymphocytes % Not Reportable Not Reportable Monocytes % Not Reportable Not Reportable Eosinophils % Not Reportable Not Reportable Basophils % Not Reportable Not Reportable Absolute Neutrophils Not Reportable Not Reportable Absolute Lymphocytes Not Reportable Not Reportable Absolute Monocytes Not Reportable Not Reportable Absolute Eosinophils Not Reportable Not Reportable Absolute Basophils Not Reportable Not Reportable Sodium Potassium Chloride Carbon Dioxide Anion Gap BUN Creatinine Est GFR ( Amer) Est GFR (Non-Af Amer) Glucose Calcium Total Bilirubin AST ALT Alkaline Phosphatase Total Protein Albumin Urine Color YELLOW Urine Appearance CLEAR Urine pH 5.0 Ur Specific [place] 1.020 Urine Protein NEGATIVE Urine Glucose (UA) NEGATIVE Urine Ketones NEGATIVE Urine Blood NEGATIVE Urine Nitrite NEGATIVE Ur Leukocyte Esterase NEGATIVE Urine WBC (Auto) 2 Urine RBC (Auto) 1 Blood Type Antibody Screen 12/05/18 09:03 WBC RBC Hgb Hct MCV MCH MCHC RDW Plt Count Seg Neutrophils % Lymphocytes % Monocytes % Eosinophils % Basophils % Absolute Neutrophils Absolute Lymphocytes Absolute Monocytes Absolute Eosinophils Absolute Basophils Sodium 138.8 Potassium 4.4 Chloride 109 H Carbon Dioxide 25 Anion Gap 5 BUN 34 H Creatinine 0.81 Est GFR ( Amer) > 60 Est GFR (Non-Af Amer) > 60 Glucose 124 H Calcium 7.9 L Total Bilirubin AST ALT Alkaline Phosphatase Total Protein Albumin Urine Color Urine Appearance Urine pH Ur Specific [place] Urine Protein Urine Glucose (UA) Urine Ketones Urine Blood Urine Nitrite Ur Leukocyte Esterase Urine WBC (Auto) Urine RBC (Auto) Blood Type Antibody Screen 12/04/18 12/04/18 14:10 14:10 Creatine Kinase 47 L CK-MB (CK-2) Cancelled Troponin I < 0.012 Impressions: Chest X-Ray 12/04/18 00:00 IMPRESSION: NG tube tip overlies the cardiac portion of the stomach. Assessment and Plan - Diagnosis (1) Acute blood loss anemia due to GI bleed Is this a current diagnosis for this admission?: Yes Plan: Hemoglobin was 6.4 now 8.3 after 2 units of packed RBC. Patient scheduled by Dr. Cooper for repeat EGD. We will closely monitor his H&H. (2) Hypertension Qualifiers: Hypertension type: essential hypertension Qualified Code(s): I10 - Essential (primary) hypertension Is this a current diagnosis for this admission?: Yes Plan: Continue home medication. (3) Hyperlipidemia Is this a current diagnosis for this admission?: Yes Plan: Continue home medication (4) Obesity (BMI 30.0-34.9) Is this a current diagnosis for this admission?: Yes Plan: Lifestyle modification advised.
[2018-12-05] MEDS ORDERED: FENTANYL CITRATE INJ/PF 100 MCG/2 ML AMPUL ONE (12:02)
[2018-12-05] MEDS ORDERED: DIPHENHYDRAMINE HCL 50 MG/ML VIAL ONE (12:02)
[2018-12-05] MEDS ORDERED: NALOXONE HCL INJ/PF 0.4 MG/1 ML SDV ONE (12:02)
[2018-12-05] MEDS ORDERED: ONDANSETRON HCL INJ/PF 4 MG/2 ML SDV ONE (12:02)
[2018-12-05] MEDS ORDERED: MIDAZOLAM 2 MG/2 ML INJ ONE (12:02)
[2018-12-05] MEDS ORDERED: FLUMAZENIL INJ 0.5 MG/5 ML VIAL ONE (12:02)
[2018-12-05] MEDS ORDERED: EPINEPHRINE INJ 1 MG/10 ML DISP.SYRIN ONE ×2 (12:02→14:33)
[2018-12-05] MEDS ORDERED: GLUCAGON,HUMAN RECOMB 1 MG INJ ONE (12:02)
--- NOTE | 2018-12-05 14:40 | PDOC TRANSFER SUMMARY ---
General Admission Date/PCP: 12/05/18 06:28 DANIELLA BARRETT MD Resuscitation Status: Full Code - Transfer Diagnosis (1) Gastrointestinal bleeding, upper Is this a current diagnosis for this admission?: Yes (2) Acute blood loss anemia Is this a current diagnosis for this admission?: Yes (3) HTN (hypertension) Is this a current diagnosis for this admission?: Yes (4) Leukocytosis Is this a current diagnosis for this admission?: Yes - Transfer Medications Home Medications: Atorvastatin Calcium [Lipitor 20 mg Tablet] 20 mg PO QHS 12/04/18 Cyclobenzaprine HCl [Flexeril 10 mg Tablet] 10 mg PO DAILYP PRN 12/04/18 Doxycycline Hyclate [Vibramycin 100 mg Tablet] 100 mg PO DAILY 12/04/18 Ferrous Sulfate [Feosol 325 mg Tablet] 325 mg PO BID 12/04/18 Hydrochlorothiazide [Hydrodiuril 25 mg Tablet] 25 mg PO DAILY 12/04/18 Meloxicam [Mobic] 15 mg PO DAILYP PRN 12/04/18 Metoprolol Succinate [Toprol Xl 50 mg Tab.sr] 50 mg PO DAILY 12/04/18 Pantoprazole Sodium [Protonix [address] Tablet] 40 mg PO DAILY 12/04/18 Transfer Medications: Current Medications Pantoprazole Sodium 80 mg/ (Sodium Chloride) 100 mls @ 10 mls/hr IV CONTINUOUS PRN PRN Reason: THIS MED IS NOT "PRN" Stop: 12/08/18 05:19 Last Admin: 12/05/18 05:47 Dose: 10 mls/hr Documented by: Sodium Chloride (Nacl 0.9% 1000 Ml Iv Soln) 1,000 mls @ 100 mls/hr IV CON TINUOUS PRN PRN Reason: THIS MED IS NOT "PRN" Stop: 01/03/19 16:38 Sodium Chloride (Nacl 0.9% 250 Ml Iv Soln) 250 mls @ 0 mls/hr IV CONTINUOUS PRN PRN Reason: AFTER EACH UNIT Stop: 12/05/18 17:38 Sodium Chloride (Nacl 0.9% 250 Ml Iv Soln) 250 mls @ 30 mls/hr IV .DURING TRANSFUSION PRN PRN Reason: THIS MED IS NOT "PRN" Stop: 12/05/18 18:24 - Allergies Allergies/Adverse Reactions: No Known Allergies Allergy (Unverified 02/04/12 19:25) Hospital Course Hospital Course: H&P: This is a 58 year old male with a past medical history of hyperlipidemia, hypertension, prior laparoscopic Liz fundoplication 2004 for severe GERD who came in today due to dizziness. Patient was just recently admitted and di scharged yesterday after he recently presented with hematemesis and melena. He was given IV fluids and blood transfusion. Patient did undergo EGD on 11/29/2018 by surgery which showed a questionable/possible hemorrhagic gastritis versus an ulcer in the Niesen wrap. He was discharged yesterday with a hemoglobin of 9.0. He says he did not have any bowel movement since discharge nor any recurrence of hematemesis since discharge. However this afternoon, he felt he was generally weak and went to the bathroom and felt very dizzy hence came back to the ER where his hemoglobin was lower at 6.4 from 9.0 from yesterday. 3 units of packed RBC has been ordered in the ER. He will be started on Protonix drip. Patient's hemoglobin improved to 8.0 after 3 units of packed RBC. He also got a unit of FFP. Patient just underwent EGD by surgery who visualized active bleed coming likely from the GE junction versus a source behind the Liz wrap. Surgery strongly recommends transfer to tertiary care as there is no GI service or IR service at [facility]. Patient is currently stable with a blood pressure of 158/90, heart rate in the 110. Discussed case with [facility] centrifugal chiller technician, Dr. Hebert who has accepted the transfer. Dr. Cooper has also discussed EGD findings with [facility] freight conductor fire suppression captain. Physical Exam Vital Signs: Temp Pulse Resp BP Pulse Ox 98.9 F 138 H 28 H 167/95 H 100 12/05/18 12:10 12/05/18 14:20 12/05/18 14:20 12/05/18 14:20 12/05/18 14:20 Intake & Output 12/04/18 12/05/18 12/06/18 06:59 06:59 06:59 Intake Total 2150 0 Output Total 175 Balance 1975 0 Weight 240 lb 11.916 oz General appearance: PRESENT: no acute distress Eye exam: PRESENT: conjunctiva pink, EOMI, PERRLA. ABSENT: scleral icterus Ear exam: PRESENT: normal external ear exam Mouth exam: PRESENT: moist, tongue midline Neck exam: ABSENT: carotid bruit, JVD, lymphadenopathy, thyromegaly Respiratory exam: PRESENT: clear to auscultation mulugeta. ABSENT: rales, rhonchi, wheezes Cardiovascular exam: PRESENT: RRR. ABSENT: diastolic murmur, rubs, systolic murmur Pulses: PRESENT: normal dorsalis pedis pul GI/Abdominal exam: PRESENT: normal bowel sounds, soft. ABSENT: distended, guarding, mass, organolmegaly, rebound, tenderness Rectal exam: PRESENT: deferred Results Laboratory Results: 12/05/18 09:03 12/05/18 09:03 12/04/18 12/04/18 12/04/18 14:10 14:10 14:10 WBC 21.2 H RBC 2.19 L Hgb 6.4 L D Hct 19.2 L MCV 88 MCH 29.1 MCHC 33.2 RDW 15.1 H Plt Count 217 Seg Neutrophils % Not Reportable Lymphocytes % Not Reportable Monocytes % Not Reportable Eosinophils % Not Reportable Basophils % Not Reportable Absolute Neutrophils Not Reportable Absolute Lymphocytes Not Reportable Absolute Monocytes Not Reportable Absolute Eosinophils Not Reportable Absolute Basophils Not Reportable Sodium 139.3 Potassium 4.0 Chloride 108 H Carbon Dioxide 25 Anion Gap 6 BUN 26 H Creatinine 0.87 Est GFR ( Amer) > 60 Est GFR (Non-Af Amer) > 60 Glucose 130 H Calcium 8.0 L Total Bilirubin 0.3 AST 17 ALT 28 Alkaline Phosphatase 44 Total Protein 4.7 L Albumin 2.8 L Urine Color Urine Appearance Urine pH Ur Specific [place] Urine Protein Urine Glucose (UA) Urine Ketones Urine Blood Urine Nitrite Ur Leukocyte Esterase Urine WBC (Auto) Urine RBC (Auto) Blood Type O POSITIVE Antibody Screen NEGATIVE 12/04/18 12/04/18 12/05/18 14:57 22:10 09:03 WBC 30.9 H* 27.9 H RBC 2.82 L 2.78 L Hgb 8.3 L 8.0 L Hct 25.1 L 24.3 L MCV 89 88 MCH 29.3 28.6 MCHC 32.9 32.7 RDW 14.8 H 14.7 H Plt Count 234 243 Seg Neutrophils % Not Reportable Not Reportable Lymphocytes % Not Reportable Not Reportable Monocytes % Not Reportable Not Reportable Eosinophils % Not Reportable Not Reportable Basophils % Not Reportable Not Reportable Absolute Neutrophils Not Reportable Not Reportable Absolute Lymphocytes Not Reportable Not Reportable Absolute Monocytes Not Reportable Not Reportable Absolute Eosinophils Not Reportable Not Reportable Absolute Basophils Not Reportable Not Reportable Sodium Potassium Chloride Carbon Dioxide Anion Gap BUN Creatinine Est GFR ( Amer) Est GFR (Non-Af Amer) Glucose Calcium Total Bilirubin AST ALT Alkaline Phosphatase Total Protein Albumin Urine Color YELLOW Urine Appearance CLEAR Urine pH 5.0 Ur Specific [place] 1.020 Urine Protein NEGATIVE Urine Glucose (UA) NEGATIVE Urine Ketones NEGATIVE Urine Blood NEGATIVE Urine Nitrite NEGATIVE Ur Leukocyte Esterase NEGATIVE Urine WBC (Auto) 2 Urine RBC (Auto) 1 Blood Type Antibody Screen 12/05/18 09:03 WBC RBC Hgb Hct MCV MCH MCHC RDW Plt Count Seg Neutrophils % Lymphocytes % Monocytes % Eosinophils % Basophils % Absolute Neutrophils Absolute Lymphocytes Absolute Monocytes Absolute Eosinophils Absolute Basophils Sodium 138.8 Potassium 4.4 Chloride 109 H Carbon Dioxide 25 Anion Gap 5 BUN 34 H Creatinine 0.81 Est GFR ( Amer) > 60 Est GFR (Non-Af Amer) > 60 Glucose 124 H Calcium 7.9 L Total Bilirubin AST ALT Alkaline Phosphatase Total Protein Albumin Urine Color Urine Appearance Urine pH Ur Specific [place] Urine Protein Urine Glucose (UA) Urine Ketones Urine Blood Urine Nitrite Ur Leukocyte Esterase Urine WBC (Auto) Urine RBC (Auto) Blood Type Antibody Screen 12/04/18 12/04/18 14:10 14:10 Creatine Kinase 47 L CK-MB (CK-2) Cancelled Troponin I < 0.012 Impressions: Chest X-Ray 12/04/18 00:00 IMPRESSION: NG tube tip overlies the cardiac portion of the stomach.
--- NOTE | 2018-12-05 14:51 | Operative Report ---
Nonrecallable Operative Report DATE OF SURGERY: 12/05/18 PREOPERATIVE DIAGNOSIS: gi bleed POSTOPERATIVE DIAGNOSIS: gi bleed OPERATION: esophagogastroduodenoscopy SURGEON: MATTEO BARROSO ANESTHESIA: Moderate Sedation TISSUE REMOVED OR ALTERED: none COMPLICATIONS: none ESTIMATED BLOOD LOSS: 200 INTRAOPERATIVE FINDINGS: see dictation PROCEDURE: see dictation
--- NOTE | 2018-12-05 16:46 | RADIOLOGY REPORT (SQ) ---
EXAM DESCRIPTION: CHEST SINGLE VIEW COMPLETED DATE/TIME: 12/05/2018 4:33 pm REASON FOR STUDY: Placement of Central Line COMPARISON: 12/04/2018 NUMBER OF VIEWS: One view. TECHNIQUE: Single frontal radiographic view of the chest acquired. LIMITATIONS: None. FINDINGS: Central venous access catheter placed via right subclavian approach. Catheter tip at cav o-atrial junction. No pneumothorax. Radiographic appearance of the chest otherwise stable. IMPRESSION: CENTRAL VENOUS ACCESS CATHETER IN APPROPRIATE LOCATION. NO PNEUMOTHORAX. NEW CENTRAL L INE. TECHNICAL DOCUMENTATION: JOB ID: [id number] 2010 [employer]- All Rights Reserved Reading location - IP/workstation name: [email or web address]
--- NOTE | 2018-12-05 16:57 | Operative Report ---
Nonrecallable Operative Report DATE OF SURGERY: 12/05/18 PREOPERATIVE DIAGNOSIS: gi bleed POSTOPERATIVE DIAGNOSIS: gi bleed OPERATION: right subclavian central line placement SURGEON: MATTEO BARROSO ANESTHESIA: Local TISSUE REMOVED OR ALTERED: none COMPLICATIONS: none ESTIMATED BLOOD LOSS: 0 INTRAOPERATIVE FINDINGS: see dictation PROCEDURE: see dictation
--- NOTE | 2018-12-05 17:05 | OPERATIVE REPORT E ---
Operative Report NAME: FAROOQ LEVI : 1960 AGE: 58Y DATE OF SURGERY: 12/05/2018 ROOM: 611 PREOPERATIVE DIAGNOSIS: UPPER GASTROINTESTINAL BLEEDING. POSTOPERATIVE DIAGNOSIS: UPPER GASTROINTESTINAL BLEEDING. OPERATION: Esophagogastroduodenoscopy. SURGEON: MATTEO BARROSO M.D. INDICATIONS FOR PROCEDURE: This is a 58-year-old male who presented to the hospital approximately 3 days ago with an upper GI bleed. He underwent an upper endoscopy by a different surgeon who noted bleeding from the proximal portion of the stomach. The patient has had a previous laparoscopic Liz fundoplication approximately 15 years ago. At that time, on the first endoscopy, the bleeding was noted and the surgeon during the procedure felt that it may be due to malignancy and a number of biopsies were obtained. The patient was then monitored for an additional 24 hours. He received 1 more unit of blood. The medical physician felt that his hemoglobin was stable and he was discharged home. He returned last night approximately 1 day after discharge with a continued hypotension and weakness without any vomiting or any blood. We placed an NG tube in the emergency room and did not really note any significant NG aspirate of blood, There was a small amount but it was not very significant. However, his hemoglobin had dropped approximately 3 points after his discharge. He received 2 units of blood and was monitored today and then went for this upper endoscopy today. PROCEDURE: The patient was brought down to the Intensive Care Unit, given IV sedation and placed in a left lateral decubitus position and after appropriate timeout and site verification, the Olympus gastroscope was passed into the posterior pharynx and into the proximal esophagus. Immediately upon passing the scope into the proximal esophagus, the patient vomited approximately 100 mL of clotted blood. We irrigated this out and then replaced the scope. Once we did this, we were able to gain access to the stomach. There was a large amount of non-clotted blood as well as clots within the body of the stomach. After some extensive irrigation and suction we were able to finally clear most of the clots and identify a large pool of blood in the fundus of the stomach. I did pass the scope distal through the pylorus into the duodenum and noted bile in the duodenum and no evidence of any significant bleeding or ulceration in the prepyloric area or duodenal bulb. I then withdrew the scope and performed a J-maneuver and looked at the GE junction from below. There was a large pool of blood in the fundus. I did not really identify a significant Liz wrap and bleeding from underneath the fold of the wrap. However on the lesser curvature side of the stomach, there was a large amount of clot and blood and after multiple attempts, I cleared some of it but really could not get enough visualization of the mucosa to see an ulcer or a Germán ulcer or encounter erosion. I must say that the patient did have a hiatal hernia within the indentation of the diaphragm at that proximal portion of the stomach and it could be secondary to a Germán erosion. However, I was unable to clear enough of the non-clotted blood to get a good look at the mucosa of the stomach. I did note, however, there was blood collecting at that point on the lesser curvature side, just below the GE junction and below the hiatal hernia indentation of the diaphragm where the blood was pooling. We did make 2 attempts at epinephrine injection in the area without much success. The blood continued to slowly pool up and ooze. I did not really identify any arterial pulsation of blood, just a constant oozing and pool of bright red blood. At this point, I elected to terminate the procedure. I notified [facility] in [place] that the patient should be transferred from our Intensive Care Unit to there for continued management and a higher level of care with a GI physician to possibly re-scope the patient in attempt at control of the bleeding. In addition to that, it may be beneficial for him to consider intervention techniques to embolize possibly the left gastric artery. However, this will be discussed and decided upon by the physicians up at [facility] in [place]. The patient tolerated the procedure well without significant complications. ESTIMATED BLOOD LOSS: Approximately 200 mL. DICTATING PHYSICIAN: MATTEO BARROSO M.D. [id number] PHY#: [id number] ID: [id number] JOB#: [id number] ACCT: [id number] cc:MATTEO BARROSO M.D. >
[2018-12-05 17:15] VITALS: BP 126/78
--- NOTE | 2018-12-05 17:15 | OPERATIVE REPORT E ---
Operative Report NAME: FAROOQ LEVI : 1960 AGE: 58Y DATE OF SURGERY: 12/05/2018 ROOM: 611 PREOPERATIVE DIAGNOSIS: GASTOINTESTINAL BLEED POSTOPERATIVE DIAGNOSIS: GASTROINTESTINAL BLEED OPERATION: Right subclavian line placement. SURGEON: MATTEO BARROSO M.D. INDICATIONS FOR PROCEDURE: This is a 58-year-old male who has an ongoing GI bleed and need of venous access for blood transfusions and unable to get peripheral access. PROCEDURE: Patient was in Intensive Care Unit, placed in Trendelenburg position. Right neck and chest were prepped and draped in the usual sterile manner. After appropriate timeout and site verification, the right subclavian area was anesthetized with 0.5% Lidocaine solution. A subclavian stick was made with a 16-gauge needle and a wire was placed through the needle into the superior vena cava and the needle was removed. The dilated was then placed over the wire and then that was removed. The triple lumen 16-Uzbek catheter was then placed over the wire into the superior vena cava. The wire was then removed. The line flushed well on all 3 ports and was irrigated with a saline solution. It was fixed to the skin with 2-0 Silk suture and a sterile dressing was applied which completed the procedure and chest x-ray is pending. The patient tolerated the procedure well and no complications. BLOOD LOSS: Less than 2 mL. DICTATING PHYSICIAN: MATTEO BARROSO M.D. [id number] PHY#: [id number] ID: [id number] JOB#: [id number] ACCT: [id number] cc:MATTEO BARROSO M.D. >
== END 2018-12-05 17:55 | disposition short-term general hospital (02) | DRG 378 ==
LOC: ER 13:25 → INTOOBSV 16:25 → EH 16:25 → UNDOADMOB 16:25 → EH 16:25 → 3W 21:24 → INTOOBSV 12-05 06:28 → OBSVTOIN 12-05 06:28 → 3W 12-05 13:06 → ICU 12-05 13:06 → UNDODISIN 12-05 17:55
PROVIDERS: ADMIT Internal Medicine; ATTEND Internal Medicine
PROC: 0DJ08ZZ Inspection of Upper Intestinal Tract, Via Natural or Artificial Opening Endoscopic (ICD-10-PCS; 2018-12-05)
PROC: 3E0G8GC Introduction of Other Therapeutic Substance into Upper GI, Via Natural or Artificial Opening Endoscopic (ICD-10-PCS; 2018-12-05)
PROC: 02HV33Z Insertion of Infusion Device into Superior Vena Cava, Percutaneous Approach (ICD-10-PCS; principal; 2018-12-05 11:00)
PROC: 30243N1 Transfusion of Nonautologous Red Blood Cells into Central Vein, Percutaneous Approach (ICD-10-PCS; 2018-12-05 11:00)
DX: K92.2 Gastrointestinal hemorrhage, unspecified (principal); D62 Acute posthemorrhagic anemia; I10 Essential (primary) hypertension; E78.5 Hyperlipidemia, unspecified; K21.9 Gastro-esophageal reflux disease without esophagitis; K44.9 Diaphragmatic hernia without obstruction or gangrene; Z87.19 Personal history of other diseases of the digestive system; D72.829 Elevated white blood cell count, unspecified; Z96.653 Presence of artificial knee joint, bilateral
CPT/HCPCS: 36415; 36430; 43235; 43236; 71045; 80048; 80053; 81001; 82550; 84484; 85025; 86850; 86900; 86901; 86920; 87040; 93005; 93010; J0171; J1200; J1610; J1940; J2250; J2310; J2405; J3010; J3490; J7050; J7120; P9016; P9017; S0164

== ENCOUNTER 2018-12-28 06:15 | Day surgery (SDC) | payer OTHER ==
[2018-12-28] MEDS ORDERED: LIDOCAINE 2% INJ-PF (100 MG/5 ML) SYRINGE ONE (07:29)
[2018-12-28] MEDS ORDERED: PROPOFOL INJ 200 MG/20 ML VIAL IV ONE (07:30)
[2018-12-28] MEDS ORDERED: DIPHENHYDRAMINE HCL 50 MG/ML VIAL IV PRN (08:29)
--- NOTE | 2018-12-28 08:48 | Discharge Summary ---
Discharge Summary (SDC) - Discharge Final Diagnosis: History of upper GI bleeding. Gastritis. Dieulafoy lesion Date of Surgery: 12/28/18 Discharge Date: 12/28/18 Condition: Stable Treatment or Instructions: Discharge home. Diet as tolerated. Activity: Nonstrenuous. Follow-up with me in 2 to 3 weeks. Referrals: DANIELLA BARRETT MD [Primary Care Provider] - Discharge Diet: As Tolerated Respiratory Treatments at Home: Deep Breathing/Coughing, Incentive Spirometer Discharge Activity: Balance Activity w/Rest Home Care Assistance: None Needed Report the Following to Your Physician Immediately: Shortness of Breath, Nausea, Vomiting, Increase in Pain, Fever over 101 Degrees, Unusual Bleeding, Redness
--- NOTE | 2018-12-28 08:52 | Operative Report ---
Nonrecallable Operative Report DATE OF SURGERY: 12/28/18 PREOPERATIVE DIAGNOSIS: Duielafoy lesion. Gastritis. History of upper GI bleeding. POSTOPERATIVE DIAGNOSIS: Same as above OPERATION: EGD with biopsy SURGEON: VISH MURPHY ANESTHESIA: LMAC TISSUE REMOVED OR ALTERED: Antrum COMPLICATIONS: None apparent ESTIMATED BLOOD LOSS: Minimal PROCEDURE: Procedure in detail: After informed consent was obtained, the patient was brought to the operating room and laid in the left lateral decubitus position. The endoscope was passed down the oropharynx, down the esophagus, and into the stomach. The stomach was insufflated with air. Immediately there was noted to be antral gastritis, with shallow gastric ulcerations at the prepyloric position. Biopsy was taken in the antrum to rule out H. pylori infection. The scope was pushed into the first and second portions of the duodenum, which appeared normal. The scope was withdrawn back into the gastric body and a retroflexion maneuver was performed. The area of previous intervention was easily identified. There is no active ulceration or bleeding. There is no old blood at the site. Endoclips were still in place over the area of bleeding. Once this was confirmed, the scope was straightened, air was suctioned from the stomach, the scope was then withdrawn up the esophagus. There were no masses or lesions noted within the esophagus. The scope was removed from the oropharynx, and the procedure was concluded. All sponge, instrument, and needle counts were correct. Condition: Stable.
[2018-12-28 09:54] VITALS: BP 145/89
== END 2018-12-28 09:30 | disposition home or self-care (01) ==
LOC: OROUT 06:15
PROVIDERS: ATTEND Surgery
DX: K29.50 Unspecified chronic gastritis without bleeding (principal); K31.82 Dieulafoy lesion (hemorrhagic) of stomach and duodenum; Z09 Encounter for follow-up examination after completed treatment for conditions other than malignant neoplasm; Z87.19 Personal history of other diseases of the digestive system; Z79.899 Other long term (current) drug therapy
CPT/HCPCS: 43239; 88342 ×2; 88305 ×2; 00731; J2001; J2704; 731